=== PATIENT | female | born 1945 | race Caucasian/White ===

== ENCOUNTER → 2016-08-02 | Outpatient (CLI) | payer MEDICARE, OTHER ==
--- NOTE | 2016-08-02 12:13 | RADIOLOGY REPORT (SQ) ---
EXAM DESCRIPTION: CERV SP 3 VIEW OR LESS COMPLETED DATE/TIME: 08/02/2016 11:59 am REASON FOR STUDY: CERVICAL RADICULOPATHY COMPARISON: 02/02/2016,, 01/31/2016, 11/01/2015 CERVICAL SPINE PLAIN FILMS MRI CERVICAL SPINE 11/01/2015 NUMBER OF VIEWS: Three views. TECHNIQUE: AP, lateral and odontoid radiographic images acquired of the cervical spine. LIMITATIONS: For visualization of C7-T1 on flexion extension images due to the patient's shoulders FINDINGS: MINERALIZATION: Osteopenic ALIGNMENT: Anatomic. VERTEBRAE: Vertebral bodies of normal height. DISCS: Post anterior fusion from C5-C7 with an anterior fixation plate and anchoring screws. Post do rsal fusion at C4-5 with posterior stabilization rods and screws into the facets. HARDWARE: As above SOFT TISSUES: Very heavily calcified carotid bifurcations bilaterally OTHER: No other significant finding. IMPRESSION: No instability on flexion extension, very limited view of C7, T1 not well seen. TECHNICAL DOCUMENTATION: JOB ID: [id number]- All Rights Reserved
== END ==
LOC: RAD 11:25
PROVIDERS: ATTEND Specialist
DX: M54.12 Radiculopathy, cervical region (principal)
CPT/HCPCS: 72040

== ENCOUNTER 2017-05-31 22:08 | Inpatient (IN) | payer MEDICARE, OTHER ==
[2017-05-31] MEDS ORDERED: RINGERS SOLUTION,LACTATED 1,000 ML IV ONE ×2 (22:29→23:12)
[2017-05-31 22:43] LABS: ABSOLUTE BASOPHILS # (AUTO) 0.1 10^3/uL (0.0-0.2); ABSOLUTE EOSINOPHILS # (AUTO) 0.4 10^3/uL (0.0-0.6); ABSOLUTE LYMPHOCYTES (AUTO) 1.7 10^3/uL (0.5-4.7); ABSOLUTE MONOCYTES (AUTO) 0.7 10^3/uL (0.1-1.4); ABSOLUTE NEUT (AUTO) 10.5 10^3/uL (1.7-8.2); BASOPHILS % (AUTO) 0.9 % (0-2); EOSINOPHILS % (AUTO) 3.3 % (0-6); HEMATOCRIT 32.4 % (36.0-47.0); HEMOGLOBIN 10.2 g/dL (12.0-15.5); LYMPHOCYTES % (AUTO) 12.8 % (13-45); MEAN CORPUSCULAR HEMOGLOBIN 26.3 pg (27.0-33.4); MEAN CORPUSCULAR HGB CONC 31.4 g/dL (32.0-36.0); MEAN CORPUSCULAR VOLUME 84 fl (80-97); MONOCYTES % (AUTO) 5.1 % (3-13); PLATELET COUNT 294 10^3/uL (150-450); RED BLOOD COUNT 3.87 10^6/uL (3.72-5.28); SEGMENTED NEUTROPHILS % (AUTO) 77.9 % (42-78); TOTAL CELLS COUNTED % (AUTO) 100 %; WHITE BLOOD COUNT 13.5 10^3/uL (4.0-10.5)
[2017-05-31 22:49] LABS: VENOUS BLOOD BASE EXCESS 9.2 mmol/L; VENOUS BLOOD HCO3 36.2 mmol/L (20-32); VENOUS BLOOD PCO2 63.6 mmHg (35-63); VENOUS BLOOD PH 7.37 (7.30-7.42)
[2017-05-31 22:58] LABS: ALANINE AMINOTRANSFERASE 32 U/L (9-52); ALBUMIN 3.2 g/dL (3.5-5.0); ALKALINE PHOSPHATASE 84 U/L (38-126); ANION GAP 5 (5-19); ASPARTATE AMINO TRANSFERASE 35 U/L (14-36); BILIRUBIN,DIRECT 0.2 mg/dL (0.0-0.4); BILIRUBIN,TOTAL 0.3 mg/dL (0.2-1.3); BLOOD UREA NITROGEN 5 mg/dL (7-20); CALCIUM 8.3 mg/dL (8.4-10.2); CARBON DIOXIDE 38 mmol/L (22-30); CHLORIDE 95 mmol/L (98-107); GLUCOSE 167 mg/dL (75-110); POTASSIUM 4.1 mmol/L (3.6-5.0); SODIUM 137.7 mmol/L (137-145); TOTAL PROTEIN 5.7 g/dL (6.3-8.2)
[2017-05-31] MEDS ORDERED: CEFEPIME 2 GM/D5W RTU 2 GM/50 ML RTUPB IV ONE (23:07)
[2017-05-31] MEDS ORDERED: VANCOMYCIN HCL INJ 1000 MG VIAL IV ONE (23:09)
[2017-05-31] MEDS ORDERED: HYDROCORTISONE SOD SUCCINATE INJ/PF 100 MG/2 ML SDV IV ONE (23:10)
--- NOTE | 2017-05-31 23:12 | ER Document Report ---
ED General - General Chief Complaint: Fever Stated Complaint: FEVER Time Seen by Provider: 05/31/17 22:28 Cannot obtain history due to: Unstable vital signs, Altered mental status Notes: Patient is a 71 year old female with a past medical history of COPD, hypertension, hyperlipidemia, chronic steroid use, who presents with fever, cough, weakness and confusion. The patient is quite lethargic at time of evaluation and has difficulty providing meaningful history. Her daughter at the bedside states that the patient called her earlier today, sounded quite confused so she went to check on her. She states that when she evaluated her that she seemed quite lethargic and had difficulty tolerating her what was going on. When this persisted the daughter did call EMS to transfer the patient to the emergency department. TRAVEL OUTSIDE OF THE [place] IN LAST 30 DAYS: No - Related Data Allergies/Adverse Reactions: No Known Allergies Allergy (Verified 07/18/15 17:08) Past Medical History - General Information source: Patient, Relative - Social History Smoking Status: Current Every Day Smoker Frequency of alcohol use: None Drug Abuse: None Lives with: Alone Family History: Reviewed & Not Pertinent Patient has suicidal ideation: No Patient has homicidal ideation: No - Past Medical History Cardiac Medical History: Reports: Hx Hypercholesterolemia Denies: Hx Coronary Artery Disease, Hx Heart Attack, Hx Hypertension Pulmonary Medical History: Reports: Hx Bronchitis, Hx COPD, Hx Pneumonia - 10 yrs ago last time Denies: Hx Asthma Neurological Medical History: Denies: Hx Cerebrovascular Accident, Hx Seizures Endocrine Medical History: Reports: Hx Diabetes Mellitus Type 2 Renal/ Medical History: Denies: Hx Peritoneal Dialysis GI Medical History: Reports: Hx Gastroesophageal Reflux Disease Musculoskeltal Medical History: Reports Hx Arthritis - Rheumatoid Psychiatric Medical History: Reports: Hx Depression Past Surgical History: Reports: Hx Hysterectomy - Immunizations Hx Diphtheria, Pertussis, Tetanus Vaccination: No Review of Systems - Review of Systems Notes: Constitutional: Positive for fever. HENT: Negative for sore throat. Eyes: Negative for visual changes. Cardiovascular: Negative for chest pain. Respiratory: Positive for shortness of breath. Gastrointestinal: Negative for abdominal pain, vomiting or diarrhea. Genitourinary: Negative for dysuria. Musculoskeletal: Negative for back pain. Skin: Negative for rash. Neurological: Negative for headaches, weakness or numbness. 10 point ROS negative except as marked above and in HPI. Physical Exam - Vital signs Vitals: Resp BP Pulse Ox 17 116/57 L 91 L 05/31/17 22:42 05/31/17 22:42 05/31/17 22:42 Interpretation: Tachycardic, Hypoxic, Tachypneic Notes: PHYSICAL EXAMINATION: GENERAL: Appears ill, diaphoretic, unwell HEAD: Atraumatic, normocephalic. EYES: Pupils equal round and reactive to light, extraocular movements intact, sclera anicteric, conjunctiva are normal. ENT: nares patent, oropharynx clear without exudates. Dry mucous membranes. NECK: Normal range of motion, supple without lymphadenopathy LUNGS: Diminished breath sounds at the bases bilaterally. Moderate tachypnea current respiratory rate 28 breaths per minute. No wheezing or rales HEART: Regular tachycardia without murmurs ABDOMEN: Soft, nontender, normoactive bowel sounds. No guarding, no rebound. No masses appreciated. EXTREMITIES: Normal range of motion, no pitting or edema. No cyanosis. NEUROLOGICAL: No focal neurological deficits. Moves all extremities spontaneously and on command. PSYCH: Lethargic, falls asleep quite easily SKIN: Warm, diaphoretic, normal turgor, no rashes or lesions noted. Course - Re-evaluation Re-evalutation: 05/31/17 23:10 Patient presents critically ill, very ill in appearance, lethargic although does wake to speak to me but rapidly falls asleep during the middle of conversation. She was febrile to 101.8F, initially hypotensive at 94 and 64 with initial heart rate of 130 and initial oxygen saturation for EMS of 71% on room air. She does not normally require chronic oxygen. Patient's venous blood gas does show hypercapnia although no significant respiratory acidosis and patient does have a picture to suggest chronic CO2 retention. However given her work of breathing, her lethargy and need for 4-5 L of nasal cannula to maintain oxygen saturations of 93% she will be placed on BiPAP to prevent deterioration of her work of breathing and further CO2 retention. Broad- spectrum antibiotics will have been started in the form of cefepime and vancomycin. Her chest x-ray appears to have a left lower lobe pneumonia and this does clinically fit with her hypoxia and septic picture. We will begin aggressive IV fluids, and continue to monitor frequently 06/01/17 00:25 Patient has had improved work of breathing on BiPAP. She continues to be somewhat somnolent. Awaiting urinalysis. Will obtain a repeat venous blood gas to ensure the patient is not having worsening hypercapnia to account for her mentation and continue to monitor closely. Overall patient does appear clinically much improved from my initial assessment. 06/01/17 01:09 Overall clinically improved. Awaiting repeat blood gas. I have discussed this case with Dr. Mikey Mark and he has accepted the patient for hospitalization. - Vital Signs Vital signs: Temp Pulse Resp BP Pulse Ox 97.4 F 95 20 102/69 99 06/01/17 02:54 06/01/17 02:54 06/01/17 02:54 06/01/17 02:54 06/01/17 02:54 - Laboratory Result Diagrams: 05/31/17 22:28 05/31/17 22:28 Laboratory results interpreted by me: 05/31/17 05/31/17 05/31/17 22:28 22:28 22:28 WBC 13.5 H Hgb 10.2 L Hct 32.4 L MCH 26.3 L MCHC 31.4 L RDW 17.0 H Lymphocytes % 12.8 L Absolute Neutrophils 10.5 H VBG pCO2 63.6 H VBG HCO3 36.2 H Chloride 95 L Carbon Dioxide 38 H BUN 5 L Glucose 167 H Calcium 8.3 L Total Protein 5.7 L Albumin 3.2 L 06/01/17 00:55 WBC Hgb Hct MCH MCHC RDW Lymphocytes % Absolute Neutrophils VBG pCO2 VBG HCO3 34.1 H Chloride Carbon Dioxide BUN Glucose Calcium Total Protein Albumin - Diagnostic Test Radiology reviewed: Image reviewed, Reports reviewed Radiology results interpreted by me: 06/01/17 01:05 Chest x-ray: Bibasilar infiltrates more prominent on the right - EKG Interpretation by Me Additional EKG results interpreted by me: 06/01/17 03:39 Sinus tachycardia. Rate 122. No ST elevations or depressions. QTC is 433. Critical Care Note - Critical Care Note Total time excluding time spent on procedures (mins): 36 Comments: Critical care time spent obtaining history from patient or surrogate, discussions with consultants, development of treatment plan with patient or surrogate, evaluation of patient's response to treatment, examination of patient , ordering and performing treatments and interventions, ordering and review of laboratory studies, re-evaluation of patient's condition, ordering and review of radiographic studies and review of old charts Discharge - Discharge Clinical Impression: Respiratory distress Sepsis Qualifiers: Sepsis type: sepsis due to unspecified organism Qualified Code(s): A41.9 - Sepsis, unspecified organism Pneumonia Qualifiers: Pneumonia type: due to unspecified organism Laterality: unspecified laterality Lung location: unspecified part of lung Qualified Code(s): J18.9 - Pneumonia, unspecified organism Condition: Fair Disposition: ADMITTED INPATIENT Admitting Provider: Hospitalist Unit Admitted: [facility]
--- NOTE | 2017-05-31 23:23 | RADIOLOGY REPORT (SQ) ---
EXAM DESCRIPTION: CHEST SINGLE VIEW CLINICAL HISTORY: 71 years Female, fever COMPARISON: 07/24/15, report only. NUMBER OF VIEWS/TECHNIQUE: 1/AP LIMITATIONS: None. FINDINGS: Moderate interstitial markings, normal cardiac silhouette, atherosclerosis, lower cervical hardware fusion. IMPRESSION: Moderate interstitial markings. Differential diagnosis includes pulmonary edema, atypical pneumonitis, and/or chronic interstitial lung disease.
[2017-06-01 01:14] LABS: VENOUS BLOOD HCO3 34.1 mmol/L (20-32); VENOUS BLOOD PCO2 62.5 mmHg (35-63); VENOUS BLOOD PH 7.36 (7.30-7.42)
[2017-06-01] MEDS ORDERED: IPRATROPIUM/ALBUTEROL 0.5-2.5 MG/3 ML AMPUL NEB PRN (01:22)
[2017-06-01] MEDS ORDERED: ACETAMINOPHEN 325 MG TABLET PO PRN (01:22)
[2017-06-01] MEDS ORDERED: CHLORPHENIRAMINE MALEATE 4 MG TABLET PO ONE (01:25)
[2017-06-01] MEDS ORDERED: HYDRALAZINE HCL INJ/PF 20 MG/1 ML SDV IV PRN (01:25)
[2017-06-01] MEDS ORDERED: VANCOMYCIN HCL 0 MG in DEXTROSE 5%-WATER 250 ML IV NR (01:30)
[2017-06-01] MEDS ORDERED: CHLORPHENIRAMINE MALEATE 4 MG TABLET ONE (04:59)
[2017-06-01] MEDS: HEPARIN SOD (PORCINE) 5,000 UNIT/ML 1 ML SYRINGE SUBCUT SCH ×3 (05:12→22:32)
[2017-06-01 05:25] LABS: APPEARANCE,URINE CLEAR; BILIRUBIN,URINE NEGATIVE (NEGATIVE); COLOR,URINE STRAW; GLUCOSE, URINE NEGATIVE (NEGATIVE); KETONES,URINE NEGATIVE (NEGATIVE); LEUKOCYTE ESTERASE,URINE NEGATIVE (NEGATIVE); NITRITE,URINE NEGATIVE (NEGATIVE); PROTEIN,URINE NEGATIVE (NEGATIVE); URINE SPECIFIC GRAVITY 1.002; UROBILINOGEN,URINE NEGATIVE mg/dL (<2.0)
[2017-06-01] MEDS ORDERED: MINERAL OIL ENEMA 133 ML PR PRN (05:36)
[2017-06-01] MEDS ORDERED: LACTULOSE SYRUP 20 GM/30 ML UDCUP PO ONE (05:36)
--- NOTE | 2017-06-01 05:42 | PDOC H&P ---
History of Present Illness Admission Date/PCP: 06/01/17 01:15 JULIA SORIANO MD Patient complains of: Fever and altered mental status. History of Present Illness: MARIANA MCCLURE is a 71 year old female with a past medical history of prednisone dependent COPD with tobacco dependence, obstructive sleep apnea with CPAP noncompliance, chronic pain, fibromyalgia, depression and diabetes. She presents with complaints of fever and is found to have lethargy, confusion hypotension, hypercapnia and nonproductive cough. In the emergency room she receives empiric antibiotics, albuterol, Atrovent and referred to the hospitalist for admission. Patient denies new medications, chest pain but admits constipation and abdominal pain. Past Medical History Cardiac Medical History: Reports: Hyperlipidema Denies: Coronary Artery Disease, Myocardial Infarction, Hypertension Pulmonary Medical History: Reports: Bronchitis, Chronic Obstructive Pulmonary Disease (COPD), Pneumonia - 10 yrs ago last time Denies: Asthma Neurological Medical History: Denies: Seizures Endocrine Medical History: Reports: Diabetes Mellitus Type 2 GI Medical History: Reports: Gastroesophageal Reflux Disease Musculoskeltal Medical History: Reports: Arthritis - Rheumatoid Psychiatric Medical History: Reports: Depression Hematology: Reports: Anemia - when in her 20's Past Surgical History Past Surgical History: Reports: Hysterectomy Social History Information Source: Patient, [facility] Records Lives with: Alone Smoking Status: Current Every Day Smoker Cigarettes Packs Per Day: 1 Number of Years Smokin Frequency of Alcohol Use: Social Hx Recreational Drug Use: Yes Drugs: None Hx Prescription Drug Abuse: No - Advance Directive Resuscitation Status: Full Code Family History Family History: COPD Parental Family History Reviewed: Yes Children Family History Reviewed: Yes Sibling(s) Family History Reviewed.: Yes Medication/Allergy Home Medications: Cholecalciferol (Vitamin D3) [Vitamin D3] 50,000 unit PO ASDIR PRN 07/18/15 Gabapentin 600 mg PO QID 07/18/15 Pravastatin Sodium 20 mg PO HSP 07/18/15 Cyclobenzaprine HCl 10 mg PO TID 06/01/17 Duloxetine HCl [Cymbalta 20 mg Capsule.dr] 60 mg PO DAILY 06/01/17 Oxycodone HCl [Oxycodone HCl 10 MG Tablet] 10 mg PO BID 06/01/17 Oxycodone HCl [Oxycontin] 15 mg PO Q12H 06/01/17 Pantoprazole Sodium 40 mg PO DAILY 06/01/17 Pravastatin Sodium [Pravachol] 40 mg PO QHS 06/01/17 Allergies/Adverse Reactions: No Known Allergies Allergy (Verified 07/18/15 17:08) Review of Systems ROS unobtainable: Due to mental status Physical Exam Vital Signs: Temp Pulse Resp BP Pulse Ox 97.5 F 98 16 100/47 L 95 06/01/17 03:45 06/01/17 03:45 06/01/17 03:45 06/01/17 03:45 06/01/17 04:09 Intake & Output 05/30/17 05/31/17 06/01/17 11:59 11:59 11:59 Weight 81.3 kg General appearance: PRESENT: cooperative, disheveled, mild distress, obese Head exam: PRESENT: atraumatic, normocephalic Eye exam: PRESENT: conjunctiva pink, EOMI, PERRLA. ABSENT: scleral icterus Ear exam: PRESENT: normal external ear exam Mouth exam: PRESENT: moist, tongue midline Neck exam: ABSENT: carotid bruit, JVD, lymphadenopathy, thyromegaly Respiratory exam: PRESENT: crackles, prolonged expiratory phas, symmetrical. ABSENT: rales, rhonchi, wheezes Cardiovascular exam: PRESENT: RRR. ABSENT: diastolic murmur, rubs, systolic murmur Pulses: PRESENT: normal dorsalis pedis pul GI/Abdominal exam: PRESENT: distended, firm, hypoactive bowel sounds, normal bowel sounds, soft, tenderness - Diffuse tenderness without guarding. ABSENT: guarding, mass, organolmegaly, rebound Rectal exam: PRESENT: deferred Extremities exam: PRESENT: full ROM. ABSENT: calf tenderness, clubbing, pedal edema Neurological exam: PRESENT: alert, altered, awake, oriented to person, oriented to place, CN II-XII grossly intact Psychiatric exam: PRESENT: unusual affect Skin exam: PRESENT: dry, intact, warm. ABSENT: cyanosis, rash Results Impressions: Chest X-Ray 05/31/17 22:28 IMPRESSION: Moderate interstitial markings. Differential diagnosis includes pulmonary edema, atypical pneumonitis, and/or chronic interstitial lung disease. Assessment & Plan - Diagnosis (1) Pneumonia Qualifiers: Pneumonia type: due to unspecified organism Laterality: unspecified laterality Lung location: unspecified part of lung Qualified Code(s): J18.9 - Pneumonia, unspecified organism Is this a current diagnosis for this admission?: Yes Plan: Complicated by chronic pain and COPD. Flutter valve and incentive spirometry empiric antibiotics, albuterol and Atrovent, follow-up CBC and blood culture (2) Sepsis Qualifiers: Sepsis type: sepsis due to unspecified organism Qualified Code(s): A41.9 - Sepsis, unspecified organism Is this a current diagnosis for this admission?: Yes Plan: Secondary to #1, IV fluid challenge, reevaluate for pressors as needed, follow- up blood culture (3) Chronic pain Is this a current diagnosis for this admission?: Yes Plan: Opiate weaning given for respiratory drive, falls and severe constipation. (4) Constipation Is this a current diagnosis for this admission?: Yes Plan: Fleet enema and lactulose (5) Chronic obstructive pulmonary disease Is this a current diagnosis for this admission?: Yes Plan: Albuterol, Atrovent, flutter valve, avoidance of tobacco, BiPAP ordered but refused. - Time Time Spent: 50 to 70 Minutes
[2017-06-01 05:56] LABS: ABSOLUTE BASOPHILS # (AUTO) 0.1 10^3/uL (0.0-0.2); ABSOLUTE LYMPHOCYTES (AUTO) 0.6 10^3/uL (0.5-4.7); ABSOLUTE MONOCYTES (AUTO) 0.2 10^3/uL (0.1-1.4); BASOPHILS % (AUTO) 0.9 % (0-2); EOSINOPHILS % (AUTO) 0.2 % (0-6); HEMATOCRIT 30.7 % (36.0-47.0); HEMOGLOBIN 9.9 g/dL (12.0-15.5); LYMPHOCYTES % (AUTO) 7.1 % (13-45); MEAN CORPUSCULAR HEMOGLOBIN 26.8 pg (27.0-33.4); MEAN CORPUSCULAR HGB CONC 32.2 g/dL (32.0-36.0); MEAN CORPUSCULAR VOLUME 83 fl (80-97); MONOCYTES % (AUTO) 2.1 % (3-13); PLATELET COUNT 236 10^3/uL (150-450); RED CELL DISTRIBUTION WIDTH 17.1 % (11.5-14.0); SEGMENTED NEUTROPHILS % (AUTO) 89.7 % (42-78); TOTAL CELLS COUNTED % (AUTO) 100 %; WHITE BLOOD COUNT 8.9 10^3/uL (4.0-10.5)
[2017-06-01 06:13] LABS: ANION GAP 9 (5-19); BLOOD UREA NITROGEN 5 mg/dL (7-20); CALCIUM 8.6 mg/dL (8.4-10.2); CARBON DIOXIDE 33 mmol/L (22-30); CHLORIDE 102 mmol/L (98-107); GLUCOSE 158 mg/dL (75-110); SODIUM 144.1 mmol/L (137-145)
[2017-06-01 06:34] LABS: POTASSIUM 4.1 mmol/L (3.6-5.0)
[2017-06-01] MEDS: IPRATROPIUM/ALBUTEROL 0.5-2.5 MG/3 ML AMPUL NEB SCH ×3 (08:21→23:49)
--- NOTE | 2017-06-01 08:44 | EKG REPORT ---
SEVERITY:- ABNORMAL ECG - SINUS TACHYCARDIA PROBABLE LEFT ATRIAL ABNORMALITY REPOL ABNRM SUGGESTS ISCHEMIA, DIFFUSE LEADS : Confirmed by: Bradley Brumfield MD 01-Jun-2017 08:43:45
[2017-06-01] MEDS ORDERED: CEFEPIME 2 GM/D5W RTU 2 GM/50 ML RTUPB IV SCH (10:00)
--- NOTE | 2017-06-01 10:13 | PDOC PROGRESS REPORT ---
Subjective Progress Note for:: 06/01/17 Subjective:: Patient states she is feeling a little better no fever no chills no chest pains She appears comfortable on the nasal cannula Reason For Visit: PNEUMONIA Physical Exam Vital Signs: Temp Pulse Resp BP Pulse Ox 98.0 F 88 18 136/63 H 94 06/01/17 07:34 06/01/17 08:24 06/01/17 08:24 06/01/17 07:34 06/01/17 08:24 Intake & Output 05/31/17 06/01/17 06/02/17 00:59 00:59 00:59 Intake Total 40 Output Total 500 Balance -460 Weight 81.3 kg General appearance: PRESENT: no acute distress, cooperative, obese Head exam: PRESENT: atraumatic, normocephalic Eye exam: PRESENT: conjunctiva pink, EOMI, PERRLA. ABSENT: scleral icterus Respiratory exam: PRESENT: decreased breath sounds. ABSENT: chest wall tenderness, rales, tachypnea, wheezes Cardiovascular exam: PRESENT: RRR. ABSENT: diastolic murmur, rubs, systolic murmur Pulses: PRESENT: normal dorsalis pedis pul GI/Abdominal exam: PRESENT: normal bowel sounds, soft. ABSENT: distended, guarding, mass, organolmegaly, rebound, tenderness Neurological exam: PRESENT: alert, awake, oriented to person, oriented to place , oriented to time, oriented to situation, CN II-XII grossly intact. ABSENT: motor sensory deficit Psychiatric exam: PRESENT: appropriate affect, normal mood Results Laboratory Results: 06/01/17 05:19 06/01/17 05:19 06/01/17 06/01/17 06/01/17 04:40 05:19 05:19 WBC 8.9 RBC 3.70 L Hgb 9.9 L Hct 30.7 L MCV 83 MCH 26.8 L MCHC 32.2 RDW 17.1 H Plt Count 236 Seg Neutrophils % 89.7 H Lymphocytes % 7.1 L Monocytes % 2.1 L Eosinophils % 0.2 Basophils % 0.9 Absolute Neutrophils 8.0 Absolute Lymphocytes 0.6 Absolute Monocytes 0.2 Absolute Eosinophils 0.0 Absolute Basophils 0.1 Sodium 144.1 Potassium 4.1 Chloride 102 Carbon Dioxide 33 H Anion Gap 9 BUN 5 L Creatinine 0.75 Est GFR ( Amer) > 60 Est GFR (Non-Af Amer) > 60 Glucose 158 H Calcium 8.6 Urine Color STRAW Urine Appearance CLEAR Urine pH 7.0 Ur Specific [facility] [place] 1.002 Urine Protein NEGATIVE Urine Glucose (UA) NEGATIVE Urine Ketones NEGATIVE Urine Blood NEGATIVE Urine Nitrite NEGATIVE Ur Leukocyte Esterase NEGATIVE Urine WBC (Auto) 1 Impressions: Chest X-Ray 05/31/17 22:28 IMPRESSION: Moderate interstitial markings. Differential diagnosis includes pulmonary edema, atypical pneumonitis, and/or chronic interstitial lung disease. Assessment & Plan - Diagnosis (1) Pneumonia Qualifiers: Pneumonia type: due to unspecified organism Laterality: unspecified laterality Lung location: unspecified part of lung Qualified Code(s): J18.9 - Pneumonia, unspecified organism Is this a current diagnosis for this admission?: Yes Plan: Treat with broad-spectrum antibiotics until cultures sputum are available As patient had discontinued vancomycin and initiated linezolid; Patient had acute renal failure with vancomycin in 2016 (2) Chronic obstructive pulmonary disease Is this a current diagnosis for this admission?: Yes (3) Chronic pain Is this a current diagnosis for this admission?: Yes (4) Sepsis Qualifiers: Sepsis type: sepsis due to unspecified organism Qualified Code(s): A41.9 - Sepsis, unspecified organism Is this a current diagnosis for this admission?: Yes (5) Tobacco abuse disorder Is this a current diagnosis for this admission?: Yes Plan: Discussed tobacco cessation initiate nicotine patch (6) Chronic anemia Is this a current diagnosis for this admission?: Yes Plan: Initiate workup in a.m. - Time Time Spent with patient: 25-34 minutes - Inpatient Certification Based on my medical assessment, after consideration of the patient's comorbidities, presenting symptoms, or acuity I expect that the services needed warrant INPATIENT care.: Yes I certify that my determination is in accordance with my understanding of Medicare's requirements for reasonable and necessary INPATIENT services [42 CFR 412.3e].: Yes Medical Necessity: Need Close Monitoring Due to Risk of Patient Decompensation, Need for Nebulizer Therapy and Monitoring of Response, Need for IV Antibiotics
[2017-06-01] MEDS ORDERED: (PENDING PHARMACY ID) (Oxycodone Hcl [Oxycontin] 15 MG) PO SCH (10:15)
[2017-06-01] MEDS ORDERED: GABAPENTIN 100 MG CAPSULE PO SCH (11:00)
[2017-06-01] MEDS ORDERED: LINEZOLID 600 MG RTU 300 ML IV ONE (11:00)
[2017-06-01] MEDS ORDERED: NICOTINE 14 MG/24 HR PATCH.TD24 TD ONE (11:30)
[2017-06-01] MEDS ORDERED: OXYCODONE HCL SR 10 MG TABLET PO ONE (11:30)
[2017-06-01] MEDS: GUAIFENESIN 600 MG TABLET.SA PO SCH ×2 (11:58→22:33)
[2017-06-01] MEDS: FLUTICASONE NASAL SPRAY 50 MCG/SPRY 120 SPRAY/16 GM NASL SCH ×2 (12:00→22:32)
[2017-06-01] MEDS ORDERED: CYCLOBENZAPRINE HCL 10 MG TABLET PO SCH (14:00)
[2017-06-01] MEDS: OXYCODONE HCL IR 5 MG TABLET PO SCH (17:18)
[2017-06-01] MEDS ORDERED: (PENDING PHARMACY ID) (Pravastatin Sodium [Pravachol] 40 MG) PO SCH (22:00)
[2017-06-01] MEDS: LINEZOLID 300 ML IV SCH (22:32)
[2017-06-01] MEDS: OXYCODONE HCL SR 10 MG TABLET PO SCH (22:33)
[2017-06-01] MEDS: ATORVASTATIN CALCIUM 10 MG TABLET PO SCH (22:33)
[2017-06-02 05:08] LABS: ABSOLUTE BASOPHILS # (AUTO) 0.1 10^3/uL (0.0-0.2); ABSOLUTE EOSINOPHILS # (AUTO) 0.3 10^3/uL (0.0-0.6); ABSOLUTE LYMPHOCYTES (AUTO) 1.1 10^3/uL (0.5-4.7); ABSOLUTE MONOCYTES (AUTO) 0.6 10^3/uL (0.1-1.4); ABSOLUTE RETICS # 0.116 10^6/uL (0.028-0.122); BASOPHILS % (AUTO) 0.9 % (0-2); EOSINOPHILS % (AUTO) 2.5 % (0-6); HEMATOCRIT 31.8 % (36.0-47.0); HEMOGLOBIN 9.9 g/dL (12.0-15.5); LYMPHOCYTES % (AUTO) 10.1 % (13-45); MEAN CORPUSCULAR HGB CONC 31.1 g/dL (32.0-36.0); MEAN CORPUSCULAR VOLUME 84 fl (80-97); MONOCYTES % (AUTO) 5.3 % (3-13); PLATELET COUNT 253 10^3/uL (150-450); RED BLOOD COUNT 3.81 10^6/uL (3.72-5.28); RED CELL DISTRIBUTION WIDTH 16.6 % (11.5-14.0); RETICULOCYTE COUNT (AUTO) 3.05 % (0.66-2.85); SEGMENTED NEUTROPHILS % (AUTO) 81.2 % (42-78); TOTAL CELLS COUNTED % (AUTO) 100 %; WHITE BLOOD COUNT 11.1 10^3/uL (4.0-10.5)
[2017-06-02 05:38] LABS: ANION GAP 8 (5-19); BLOOD UREA NITROGEN 3 mg/dL (7-20); CARBON DIOXIDE 35 mmol/L (22-30); CHLORIDE 100 mmol/L (98-107); GLUCOSE 117 mg/dL (75-110); IRON(TIBC) 22.6 ug/dL (37-170); POTASSIUM 3.5 mmol/L (3.6-5.0); SODIUM 143.2 mmol/L (137-145)
[2017-06-02 06:13] LABS: FERRITIN 9.51 ng/mL (11.1-264.0)
[2017-06-02] MEDS: HEPARIN SOD (PORCINE) 5,000 UNIT/ML 1 ML SYRINGE SUBCUT SCH ×3 (06:41→21:55)
[2017-06-02] MEDS: LANSOPRAZOLE 30 MG TAB.RAP.DR PO SCH (06:41)
[2017-06-02] MEDS: OXYCODONE HCL IR 5 MG TABLET PO SCH (06:41)
[2017-06-02 06:53] LABS: FOLATE > 20.00 ng/mL (>2.76)
[2017-06-02] MEDS: IPRATROPIUM/ALBUTEROL 0.5-2.5 MG/3 ML AMPUL NEB SCH ×3 (08:18→23:52)
[2017-06-02] MEDS: OXYCODONE HCL SR 10 MG TABLET PO SCH ×2 (10:33→21:55)
[2017-06-02] MEDS: GUAIFENESIN 600 MG TABLET.SA PO SCH ×2 (10:33→21:55)
[2017-06-02] MEDS: LINEZOLID 300 ML IV SCH ×2 (10:34→21:55)
[2017-06-02] MEDS: NICOTINE 14 MG/24 HR PATCH.TD24 TD SCH (10:34)
[2017-06-02] MEDS: FLUTICASONE NASAL SPRAY 50 MCG/SPRY 120 SPRAY/16 GM NASL SCH ×2 (10:34→21:55)
--- NOTE | 2017-06-02 11:30 | PDOC PROGRESS REPORT ---
Subjective Progress Note for:: 06/02/17 Subjective:: Patient is complaining of diffuse pains and headaches no shortness of breath no fever no chills no pleuritic chest pains Reason For Visit: PNEUMONIA Physical Exam Vital Signs: Temp Pulse Resp BP Pulse Ox 98.1 F 97 18 145/69 H 97 06/02/17 08:13 06/02/17 08:24 06/02/17 08:24 06/02/17 08:13 06/02/17 08:24 Intake & Output 06/01/17 06/02/17 06/03/17 00:59 00:59 00:59 Intake Total 1397 855 Output Total 500 1900 Balance 897 -1045 Weight 81.3 kg 79.6 kg General appearance: PRESENT: no acute distress Head exam: PRESENT: atraumatic, normocephalic Eye exam: PRESENT: conjunctiva pink, EOMI, PERRLA. ABSENT: scleral icterus Neck exam: ABSENT: carotid bruit, JVD, lymphadenopathy, thyromegaly Respiratory exam: PRESENT: clear to auscultation mia, decreased breath sounds. ABSENT: rales, rhonchi, wheezes Cardiovascular exam: PRESENT: RRR. ABSENT: diastolic murmur, rubs, systolic murmur Pulses: PRESENT: normal dorsalis pedis pul GI/Abdominal exam: PRESENT: ascites Extremities exam: PRESENT: full ROM, +1 edema - Left lower extremity. ABSENT: clubbing, joint swelling Neurological exam: PRESENT: alert, awake, oriented to person, oriented to place , oriented to time, oriented to situation, CN II-XII grossly intact. ABSENT: motor sensory deficit Results Laboratory Results: 06/02/17 04:48 06/02/17 04:48 06/02/17 06/02/17 04:48 04:48 WBC 11.1 H RBC 3.81 Hgb 9.9 L Hct 31.8 L MCV 84 MCH 26.0 L MCHC 31.1 L RDW 16.6 H Plt Count 253 Seg Neutrophils % 81.2 H Lymphocytes % 10.1 L Monocytes % 5.3 Eosinophils % 2.5 Basophils % 0.9 Absolute Neutrophils 9.0 H Absolute Lymphocytes 1.1 Absolute Monocytes 0.6 Absolute Eosinophils 0.3 Absolute Basophils 0.1 Retic Count (auto) 3.05 H Absolute Retic 0.116 Sodium 143.2 Potassium 3.5 L Chloride 100 Carbon Dioxide 35 H Anion Gap 8 BUN 3 L Creatinine 0.64 Est GFR ( Amer) > 60 Est GFR (Non-Af Amer) > 60 Glucose 117 H Calcium 9.0 Iron 22.6 L TIBC 420 % Saturation 5 Ferritin 9.51 L Vitamin B12 401.0 Folate > 20.00 Impressions: Chest X-Ray 05/31/17 22:28 IMPRESSION: Moderate interstitial markings. Differential diagnosis includes pulmonary edema, atypical pneumonitis, and/or chronic interstitial lung disease. Assessment & Plan - Diagnosis (1) Pneumonia Qualifiers: Pneumonia type: due to unspecified organism Laterality: unspecified laterality Lung location: unspecified part of lung Qualified Code(s): J18.9 - Pneumonia, unspecified organism Is this a current diagnosis for this admission?: Yes Plan: Complicated pneumonia with sepsis on admission Continue broad-spectrum coverage (2) Chronic obstructive pulmonary disease Is this a current diagnosis for this admission?: Yes (3) Chronic pain Is this a current diagnosis for this admission?: Yes Plan: Continue pain meds Changed oxycodone to every 4 hours . as needed (4) Sepsis Qualifiers: Sepsis type: sepsis due to unspecified organism Qualified Code(s): A41.9 - Sepsis, unspecified organism Is this a current diagnosis for this admission?: Yes (5) Tobacco abuse disorder Is this a current diagnosis for this admission?: Yes (6) Chronic anemia Is this a current diagnosis for this admission?: Yes Plan: Likely anemia of chronic disease and iron deficiency anemia We will replace iron - Time Time Spent with patient: Continue present management Time Spent with patient: 25-34 minutes
[2017-06-02] MEDS: FERROUS SULFATE 325 MG TABLET PO SCH (12:06)
[2017-06-02] MEDS ORDERED: POTASSIUM CHLORIDE 10 MEQ CAPSULE.ER PO ONE (12:30)
[2017-06-02] MEDS: OXYCODONE HCL IR 5 MG TABLET PO PRN (18:01)
[2017-06-02] MEDS: ATORVASTATIN CALCIUM 10 MG TABLET PO SCH (21:55)
[2017-06-03] MEDS: OXYCODONE HCL IR 5 MG TABLET PO PRN ×4 (00:06→19:33)
[2017-06-03 05:51] LABS: ABSOLUTE BASOPHILS # (AUTO) 0.1 10^3/uL (0.0-0.2); ABSOLUTE EOSINOPHILS # (AUTO) 0.4 10^3/uL (0.0-0.6); ABSOLUTE LYMPHOCYTES (AUTO) 1.3 10^3/uL (0.5-4.7); ABSOLUTE MONOCYTES (AUTO) 0.4 10^3/uL (0.1-1.4); ABSOLUTE NEUT (AUTO) 5.4 10^3/uL (1.7-8.2); EOSINOPHILS % (AUTO) 4.8 % (0-6); HEMATOCRIT 32.2 % (36.0-47.0); HEMOGLOBIN 10.2 g/dL (12.0-15.5); LYMPHOCYTES % (AUTO) 17.5 % (13-45); MEAN CORPUSCULAR HEMOGLOBIN 26.3 pg (27.0-33.4); MEAN CORPUSCULAR HGB CONC 31.7 g/dL (32.0-36.0); MEAN CORPUSCULAR VOLUME 83 fl (80-97); MONOCYTES % (AUTO) 5.6 % (3-13); PLATELET COUNT 242 10^3/uL (150-450); RED BLOOD COUNT 3.88 10^6/uL (3.72-5.28); RED CELL DISTRIBUTION WIDTH 16.7 % (11.5-14.0); SEGMENTED NEUTROPHILS % (AUTO) 71.1 % (42-78); TOTAL CELLS COUNTED % (AUTO) 100 %; WHITE BLOOD COUNT 7.6 10^3/uL (4.0-10.5)
[2017-06-03] MEDS: LANSOPRAZOLE 30 MG TAB.RAP.DR PO SCH (06:02)
[2017-06-03] MEDS: HEPARIN SOD (PORCINE) 5,000 UNIT/ML 1 ML SYRINGE SUBCUT SCH ×3 (06:02→21:26)
[2017-06-03 06:43] LABS: ANION GAP 9 (5-19); BLOOD UREA NITROGEN 3 mg/dL (7-20); CALCIUM 8.9 mg/dL (8.4-10.2); CARBON DIOXIDE 33 mmol/L (22-30); CHLORIDE 101 mmol/L (98-107); GLUCOSE 100 mg/dL (75-110); POTASSIUM 3.5 mmol/L (3.6-5.0)
[2017-06-03] MEDS: IPRATROPIUM/ALBUTEROL 0.5-2.5 MG/3 ML AMPUL NEB SCH ×2 (08:28→16:10)
[2017-06-03] MEDS: OXYCODONE HCL SR 10 MG TABLET PO SCH ×2 (09:54→21:32)
[2017-06-03] MEDS: FLUTICASONE NASAL SPRAY 50 MCG/SPRY 120 SPRAY/16 GM NASL SCH ×2 (09:54→21:32)
[2017-06-03] MEDS: NICOTINE 14 MG/24 HR PATCH.TD24 TD SCH (09:55)
[2017-06-03] MEDS: LINEZOLID 300 ML IV SCH ×2 (09:55→21:29)
[2017-06-03] MEDS: GUAIFENESIN 600 MG TABLET.SA PO SCH ×2 (09:55→21:31)
[2017-06-03] MEDS: FERROUS SULFATE 325 MG TABLET PO SCH (12:41)
--- NOTE | 2017-06-03 12:43 | PDOC PROGRESS REPORT ---
Subjective Progress Note for:: 06/03/17 Subjective:: Patient is complaining of severe pain left lower extremity intermittent Her breathing is better She still remains hypoxemic at rest with an O2 sat of 89% No chest pain no productive cough no fever no chills Reason For Visit: PNEUMONIA Physical Exam Vital Signs: Temp Pulse Resp BP Pulse Ox 98.1 F 96 16 123/64 98 06/03/17 07:49 06/03/17 08:28 06/03/17 08:28 06/03/17 07:49 06/03/17 08:28 Intake & Output 06/02/17 06/03/17 06/04/17 00:59 00:59 00:59 Intake Total 1397 1892 500 Output Total 500 3100 1900 Balance 937 -7077 -1400 Weight 81.3 kg 79.6 kg 77.6 kg General appearance: PRESENT: no acute distress Head exam: PRESENT: atraumatic, normocephalic Eye exam: PRESENT: conjunctiva pink, EOMI, PERRLA. ABSENT: scleral icterus Neck exam: ABSENT: carotid bruit, JVD, lymphadenopathy, thyromegaly Respiratory exam: PRESENT: clear to auscultation mia, decreased breath sounds. ABSENT: rales, rhonchi, wheezes Cardiovascular exam: PRESENT: RRR. ABSENT: diastolic murmur, rubs, systolic murmur Pulses: PRESENT: normal dorsalis pedis pul GI/Abdominal exam: PRESENT: ascites Extremities exam: PRESENT: full ROM, +1 edema - Left lower extremity. ABSENT: clubbing, joint swelling Neurological exam: PRESENT: alert, awake, oriented to person, oriented to place , oriented to time, oriented to situation, CN II-XII grossly intact. ABSENT: motor sensory deficit Results Laboratory Results: 06/03/17 05:06 06/03/17 05:06 06/03/17 06/03/17 05:06 05:06 WBC 7.6 RBC 3.88 Hgb 10.2 L Hct 32.2 L MCV 83 MCH 26.3 L MCHC 31.7 L RDW 16.7 H Plt Count 242 Seg Neutrophils % 71.1 Lymphocytes % 17.5 Monocytes % 5.6 Eosinophils % 4.8 Basophils % 1.0 Absolute Neutrophils 5.4 Absolute Lymphocytes 1.3 Absolute Monocytes 0.4 Absolute Eosinophils 0.4 Absolute Basophils 0.1 Sodium 143.0 Potassium 3.5 L Chloride 101 Carbon Dioxide 33 H Anion Gap 9 BUN 3 L Creatinine 0.73 Est GFR ( Amer) > 60 Est GFR (Non-Af Amer) > 60 Glucose 100 Calcium 8.9 06/01/17 04:40 Clean Catch Midstream Urine Culture - Final NO GROWTH 2 DAYS Impressions: Chest X-Ray 05/31/17 22:28 IMPRESSION: Moderate interstitial markings. Differential diagnosis includes pulmonary edema, atypical pneumonitis, and/or chronic interstitial lung disease. Assessment & Plan - Diagnosis (1) Pneumonia Qualifiers: Pneumonia type: due to unspecified organism Laterality: unspecified laterality Lung location: unspecified part of lung Qualified Code(s): J18.9 - Pneumonia, unspecified organism Is this a current diagnosis for this admission?: Yes (2) Chronic obstructive pulmonary disease Is this a current diagnosis for this admission?: Yes (3) Chronic pain Is this a current diagnosis for this admission?: Yes (4) Sepsis Qualifiers: Sepsis type: sepsis due to unspecified organism Qualified Code(s): A41.9 - Sepsis, unspecified organism Is this a current diagnosis for this admission?: Yes (5) Tobacco abuse disorder Is this a current diagnosis for this admission?: Yes (6) Chronic anemia Is this a current diagnosis for this admission?: Yes (7) Peripheral neuropathy Is this a current diagnosis for this admission?: Yes - Time Time Spent with patient: We will continue the present management Overall patient's condition has improved but she still significantly hypoxemic We will continue broad-spectrum antibiotics IV for total of 5 days Decrease steroids Continue pain management Patient likely will be discharged on 06/05 with supplemental O2 if she qualifies Time Spent with patient: 25-34 minutes
[2017-06-03] MEDS ORDERED: DULOXETINE HCL 30 MG CAPSULE.DR PO ONE (13:00)
[2017-06-03] MEDS ORDERED: PREDNISONE 20 MG TABLET PO ONE (14:00)
[2017-06-03] MEDS: ATORVASTATIN CALCIUM 10 MG TABLET PO SCH (21:31)
[2017-06-03] MEDS: GABAPENTIN 300 MG CAPSULE PO SCH (21:31)
[2017-06-04] MEDS: IPRATROPIUM/ALBUTEROL 0.5-2.5 MG/3 ML AMPUL NEB SCH ×2 (00:26→08:51)
[2017-06-04 06:27] LABS: ABSOLUTE BASOPHILS # (AUTO) 0.1 10^3/uL (0.0-0.2); ABSOLUTE LYMPHOCYTES (AUTO) 1.5 10^3/uL (0.5-4.7); ABSOLUTE MONOCYTES (AUTO) 0.8 10^3/uL (0.1-1.4); ABSOLUTE NEUT (AUTO) 8.1 10^3/uL (1.7-8.2); BASOPHILS % (AUTO) 1.3 % (0-2); EOSINOPHILS % (AUTO) 0.4 % (0-6); HEMATOCRIT 34.6 % (36.0-47.0); HEMOGLOBIN 10.9 g/dL (12.0-15.5); LYMPHOCYTES % (AUTO) 14.2 % (13-45); MEAN CORPUSCULAR HEMOGLOBIN 26.3 pg (27.0-33.4); MEAN CORPUSCULAR HGB CONC 31.6 g/dL (32.0-36.0); MEAN CORPUSCULAR VOLUME 83 fl (80-97); MONOCYTES % (AUTO) 7.3 % (3-13); PLATELET COUNT 276 10^3/uL (150-450); RED BLOOD COUNT 4.15 10^6/uL (3.72-5.28); RED CELL DISTRIBUTION WIDTH 16.8 % (11.5-14.0); SEGMENTED NEUTROPHILS % (AUTO) 76.8 % (42-78); TOTAL CELLS COUNTED % (AUTO) 100 %; WHITE BLOOD COUNT 10.5 10^3/uL (4.0-10.5)
[2017-06-04 06:45] LABS: ANION GAP 6 (5-19); BLOOD UREA NITROGEN 3 mg/dL (7-20); CALCIUM 9.5 mg/dL (8.4-10.2); CARBON DIOXIDE 38 mmol/L (22-30); CHLORIDE 99 mmol/L (98-107); GLUCOSE 117 mg/dL (75-110); POTASSIUM 3.6 mmol/L (3.6-5.0); SODIUM 143.4 mmol/L (137-145)
[2017-06-04] MEDS: HEPARIN SOD (PORCINE) 5,000 UNIT/ML 1 ML SYRINGE SUBCUT SCH (07:04)
[2017-06-04] MEDS: LANSOPRAZOLE 30 MG TAB.RAP.DR PO SCH (07:04)
[2017-06-04 09:26] VITALS: BP 126/64
[2017-06-04] MEDS ORDERED: LEVOFLOXACIN 750 MG TABLET PO ONE (09:32)
[2017-06-04] MEDS: GUAIFENESIN 600 MG TABLET.SA PO SCH (09:35)
[2017-06-04] MEDS: OXYCODONE HCL SR 10 MG TABLET PO SCH (09:35)
[2017-06-04] MEDS: NICOTINE 14 MG/24 HR PATCH.TD24 TD SCH (09:36)
[2017-06-04] MEDS: FLUTICASONE NASAL SPRAY 50 MCG/SPRY 120 SPRAY/16 GM NASL SCH (09:36)
[2017-06-04] MEDS: LINEZOLID 300 ML IV SCH (09:36)
[2017-06-04] MEDS: GABAPENTIN 300 MG CAPSULE PO SCH (09:36)
[2017-06-04] MEDS ORDERED: PREDNISONE 20 MG TABLET PO SCH (10:00)
[2017-06-04] MEDS ORDERED: DULOXETINE HCL 30 MG CAPSULE.DR PO SCH (10:00)
--- NOTE | 2017-06-04 15:47 | PDOC DISCHARGE SUMMARY ---
General - Admit/Disc Date/PCP Admission Date/Primary Care Provider: 06/01/17 01:15 JULIA SORIANO MD Discharge Date: 06/04/17 - Discharge Diagnosis (1) Pneumonia Is this a current diagnosis for this admission?: Yes (2) Chronic obstructive pulmonary disease Is this a current diagnosis for this admission?: Yes (3) Chronic pain Is this a current diagnosis for this admission?: Yes (4) Sepsis Is this a current diagnosis for this admission?: Yes (5) Tobacco abuse disorder Is this a current diagnosis for this admission?: Yes (6) Chronic anemia Is this a current diagnosis for this admission?: Yes (7) Peripheral neuropathy Is this a current diagnosis for this admission?: Yes (8) Obstructive sleep apnea Is this a current diagnosis for this admission?: Yes - Additional Information Resuscitation Status: Full Code Prescriptions: Ferrous Sulfate [Feosol 325 mg Tablet] 325 mg PO NOON 30 Days #30 tablet Fluticasone Propionate [Flonase Nasal [place] 50 Mcg/[place] 16 gm] 2 spray NASL Q12 #1 spray.pump Guaifenesin [Mucinex Sr 600 mg Tablet.sa] 600 mg PO Q12 10 Days #20 tablet.sa Ipratropium/Albuterol Sulfate [Duoneb 3 ml Ampul] 3 ml NEB RTQ8 30 Days #30 vial.neb Levofloxacin [Levaquin 750 mg Tablet] 750 mg PO DAILY #10 tab Nicotine [Nicoderm 14 mg/24 Hr Transdermal Patch] 1 patch TD DAILY 30 Days #30 patch.td24 Prednisone [Deltasone 20 mg Tablet] 20 mg PO DAILY 14 Days #14 tablet Home Medications: Albuterol Sulfate [Proventil Hfa] 1 puff IH Q4HP PRN 06/01/17 Cyclobenzaprine HCl [Flexeril 10 mg Tablet] 10 mg PO TID 06/01/17 Duloxetine HCl [Cymbalta] 60 mg PO DAILY 06/01/17 Ergocalciferol (Vitamin D2) [Drisdol 50,000 unit (1.25MG) Capsule] 50,000 unit PO WE 06/01/17 Gabapentin [Neurontin 300 mg Capsule] 300 mg PO Q12 06/01/17 Oxycodone HCl [Oxycodone HCl 10 MG Tablet] 10 mg PO Q12 06/01/17 Oxycodone HCl [Oxycontin] 15 mg PO Q12 06/01/17 Pantoprazole Sodium [Protonix] 40 mg PO DAILY 06/01/17 Pravastatin Sodium [Pravachol] 40 mg PO DAILY 06/01/17 Ferrous Sulfate [Feosol 325 mg Tablet] 325 mg PO NOON 30 Days #30 tablet Fluticasone Propionate [Flonase Nasal [place] 50 Mcg/[place] 16 gm] 2 spray NASL Q12 #1 spray.pump 06/04/17 Guaifenesin [Mucinex Sr 600 mg Tablet.sa] 600 mg PO Q12 10 Days #20 tablet.sa Ipratropium/Albuterol Sulfate [Duoneb 3 ml Ampul] 3 ml NEB RTQ8 30 Days #30 vial.neb 06/04/17 Levofloxacin [Levaquin 750 mg Tablet] 750 mg PO DAILY #10 tab 06/04/17 Nicotine [Nicoderm 14 mg/24 Hr Transdermal Patch] 1 patch TD DAILY 30 Days #30 patch.td24 06/04/17 Prednisone [Deltasone 20 mg Tablet] 20 mg PO DAILY 14 Days #14 tablet 06/04/17 History of Present Illness Patient complains of: shortness breath fever cough History of Present Illness: MARIANA MCCLURE is a 71 year old female with a past medical history of prednisone dependent COPD with tobacco dependence, obstructive sleep apnea with CPAP noncompliance, chronic pain, fibromyalgia, depression and diabetes. She presents with complaints of fever and is found to have lethargy, confusion hypotension, hypercapnia and nonproductive cough. In the emergency room she receives empiric antibiotics, albuterol, Atrovent and referred to the hospitalist for admission. Hospital Course Hospital Course: 1 COPD acute exacerbation Patient was treated with nebs Steroids were added She initially required supplemental O2 She improved with medical management At discharge patient's O2 sat is 94% on room air 2 pneumonia Initial chest x-ray showed increased markings bilaterally Patient was treated initially with broad-spectrum antibiotic including cefepime and vancomycin Blood cultures were negative She had a nonproductive cough patient clinically improved She was discharged on 10 day course of Levaquin. 3 sepsis on admission secondary to pneumonia resolved Pneumonia was present at time of admission 4 tobacco dependency Patient was discharged with nicotine patch Tobacco cessation was discussed at length 5 chronic anemia Likely anemia of chronic disease and iron deficiency anemia The patient had normal vitamin B12 and normal folic acid level Serum iron was low Patient was discharged on iron supplements Physical Exam Vital Signs: Temp Pulse Resp BP Pulse Ox 98.1 F 108 H 16 126/64 H 94 06/04/17 12:20 06/04/17 12:20 06/04/17 12:20 06/04/17 08:21 06/04/17 12:20 Intake & Output 06/03/17 06/04/17 06/05/17 00:59 00:59 00:59 Intake Total 1892 1370 400 Output Total 3100 2700 0 Balance -1208 -1330 400 Weight 79.6 kg 77.6 kg 73.7 kg General appearance: PRESENT: no acute distress Head exam: PRESENT: atraumatic, normocephalic Eye exam: PRESENT: conjunctiva pink, EOMI, PERRLA. ABSENT: scleral icterus Neck exam: ABSENT: carotid bruit, JVD, lymphadenopathy, thyromegaly Respiratory exam: PRESENT: clear to auscultation mia, decreased breath sounds. ABSENT: rales, rhonchi, wheezes Cardiovascular exam: PRESENT: RRR. ABSENT: diastolic murmur, rubs, systolic murmur Pulses: PRESENT: normal dorsalis pedis pul GI/Abdominal exam: PRESENT: ascites Extremities exam: PRESENT: full ROM, +1 edema - Left lower extremity. ABSENT: clubbing, joint swelling Neurological exam: PRESENT: alert, awake, oriented to person, oriented to place , oriented to time, oriented to situation, CN II-XII grossly intact. ABSENT: motor sensory deficit Results Laboratory Results: 06/04/17 05:29 06/04/17 05:29 06/02/17 06/04/17 06/04/17 04:48 05:29 05:29 WBC 10.5 RBC 4.15 Hgb 10.9 L Hct 34.6 L MCV 83 MCH 26.3 L MCHC 31.6 L RDW 16.8 H Plt Count 276 Seg Neutrophils % 76.8 Lymphocytes % 14.2 Monocytes % 7.3 Eosinophils % 0.4 Basophils % 1.3 Absolute Neutrophils 8.1 Absolute Lymphocytes 1.5 Absolute Monocytes 0.8 Absolute Eosinophils 0.0 Absolute Basophils 0.1 Sodium 143.4 Potassium 3.6 Chloride 99 Carbon Dioxide 38 H Anion Gap 6 BUN 3 L Creatinine 0.72 Est GFR ( Amer) > 60 Est GFR (Non-Af Amer) > 60 Glucose 117 H Calcium 9.5 Transferrin 290 Impressions: Chest X-Ray 05/31/17 22:28 IMPRESSION: Moderate interstitial markings. Differential diagnosis includes pulmonary edema, atypical pneumonitis, and/or chronic interstitial lung disease. Qualifiers - * PATEINT BEING DISCHARGED WITH ANY OF THE FOLLOWING DIAGNOSIS?: No Plan Discharge Plan: Patient was discharged home to follow-up with primary care physician in a week she is to continue home CPAP at night She was strongly advised to stop smoking she did not need supplemental O2 at discharge
[2017-06-04] MEDS ORDERED: LINEZOLID 600 MG TABLET PO SCH (22:00)
== END 2017-06-04 12:44 | disposition home or self-care (01) | DRG 871 ==
LOC: ER 22:08 → EH 06-01 01:15 → 3S 06-01 02:32
PROVIDERS: ADMIT Internal Medicine; ATTEND Internal Medicine
PROC: 5A09557 Assistance with Respiratory Ventilation, Greater than 96 Consecutive Hours, Continuous Positive Airway Pressure (ICD-10-PCS; principal; 2017-06-01)
DX: A41.9 Sepsis, unspecified organism (principal); J18.9 Pneumonia, unspecified organism; J44.1 Chronic obstructive pulmonary disease with (acute) exacerbation; J44.0 Chronic obstructive pulmonary disease with (acute) lower respiratory infection; G47.33 Obstructive sleep apnea (adult) (pediatric); D64.9 Anemia, unspecified; M79.7 Fibromyalgia; F32.9 Major depressive disorder, single episode, unspecified; E11.9 Type 2 diabetes mellitus without complications; D50.9 Iron deficiency anemia, unspecified; E78.5 Hyperlipidemia, unspecified; M06.9 Rheumatoid arthritis, unspecified; K21.9 Gastro-esophageal reflux disease without esophagitis; F17.210 Nicotine dependence, cigarettes, uncomplicated; Z79.52 Long term (current) use of systemic steroids; Z91.19 Patient's noncompliance with other medical treatment and regimen; Z90.710 Acquired absence of both cervix and uterus; G62.9 Polyneuropathy, unspecified; R06.89 Other abnormalities of breathing
CPT/HCPCS: 36415; 71045; 80048; 80053; 81001; 82607; 82728; 82746; 82803; 83540; 83550; 83605; 83880; 84466; 85025; 85045; 87040; 87086; 93005; 93010; 94640; 94660; 94667; 94668; 94799; 96365; 96366; 96368; 96375; 99291; J0692; J1644; J1720; J2020; J3370; J3490; J7120; J7512; J7620

== ENCOUNTER 2017-08-28 15:25 | Inpatient (IN) | payer MEDICARE, OTHER ==
--- NOTE | 2017-08-28 15:45 | ER Document Report ---
ED Respiratory Problem - General Stated Complaint: DIFFICULTY BREATHING Time Seen by Provider: 08/28/17 15:42 Notes: Patient brought in because of respiratory difficulties and low oxygen saturation level. Visiting home health nurse says the patient had oxygen levels of 80-82 on room air. She does have home oxygen, using them more often in the past few weeks. She has a history of COPD and is on prednisone as well as inhalers for albuterol and, I believe, albuterol and Atrovent combined. Patient has had some cough and congestion and progressive worsening of her difficulty breathing over the past few weeks or months. Not aware of any fever. Patient does continue to smoke cigarettes. TRAVEL OUTSIDE OF THE [place] IN LAST 30 DAYS: No - Related Data Allergies/Adverse Reactions: No Known Allergies Allergy (Verified 07/18/15 17:08) Past Medical History - Social History Smoking Status: Current Every Day Smoker Family History: Reviewed & Not Pertinent, COPD - Past Medical History Cardiac Medical History: Reports: Hx Hypercholesterolemia Pulmonary Medical History: Reports: Hx Bronchitis, Hx COPD, Hx Pneumonia - 10 yrs ago last time Endocrine Medical History: Reports: Hx Diabetes Mellitus Type 2 GI Medical History: Reports: Hx Gastroesophageal Reflux Disease Musculoskeltal Medical History: Reports Hx Arthritis - Rheumatoid Psychiatric Medical History: Reports: Hx Depression Past Surgical History: Reports: Hx Hysterectomy - Immunizations Hx Diphtheria, Pertussis, Tetanus Vaccination: No Review of Systems - Review of Systems Notes: REVIEW OF SYSTEMS: CONSTITUTIONAL : Denies fever. CARDIOVASCULAR: Denies chest pain. No peripheral edema present. RESPIRATORY: Has had a cough with congestion and shortness of breath. See HPI. GASTROINTESTINAL: Denies abdominal pain or nausea, vomiting, or diarrhea. GENITOURINARY: Denies difficulty or painful urinating, urinary frequency, blood in urine. MUSCULOSKELETAL: Denies back or neck pain. Denies joint pain or swelling. Negative Homans. SKIN: Denies rash or skin lesions. NEUROLOGICAL: Denies LOC or altered mental status, but, as mentioned, patient is subdued and somnolent. Denies headache. Denies sensory loss or motor deficits. ALL OTHER SYSTEMS REVIEWED AND NEGATIVE. -: Yes ROS unobtainable due to patient's medical condition - Patient too somnolent and weak to answer questions. Knows she is at [place] Physical Exam - Vital signs Vitals: Resp Pulse Ox 15 94 08/28/17 15:34 08/28/17 15:34 Interpretation: Normal, Tachycardic Notes: PHYSICAL EXAMINATION: GENERAL: Sleeping. in no acute distress. Awakens with tactile stimulation or loud verbal stimulation. HEAD: Atraumatic, normocephalic. EYES: Pupils equal round and reactive to light, extraocular movements intact. ENT: oropharynx clear without exudates. Moist mucous membranes. NECK: Normal range of motion, supple. LUNGS: Breath sounds clear and equal bilaterally. No wheezes nor rhonchi heard. HEART: Regular rate and rhythm without murmurs. Sinus tachycardia 111 on EKG. ABDOMEN: Soft, nontender. No guarding or rebound. No masses. BACK: No tenderness throughout entire back. EXTREMITIES: Normal range of motion without pain. Negative Homans bilaterally. No significant pretibial pitting edema. NEUROLOGICAL: Speech sounds sleepy. Gait not tested. Normal sensory, motor, and reflex exams. Awake, alert, and oriented x3. Cranial nerves normal. PSYCH: Normal mood, normal affect. SKIN: Warm, dry, no rashes. Course - Re-evaluation Re-evalutation: 08/28/17 16:08 Patient was started on BiPAP. 08/28/17 17:58 Discussed with hospitalist and patient will be admitted. Patient's PCO2 is 67 and her blood gases. Somewhat more responsive now. Moves and answers questions. - Vital Signs Vital signs: Temp Pulse Resp BP Pulse Ox 98.9 F 15 117/70 98 08/28/17 15:44 08/28/17 17:01 08/28/17 17:00 08/28/17 16:01 - Laboratory Result Diagrams: 08/28/17 15:50 08/28/17 15:50 Laboratory results interpreted by me: 08/28/17 08/28/17 08/28/17 15:50 15:50 15:50 WBC 14.3 H Hgb 11.0 L Hct 34.5 L MCHC 31.8 L RDW 17.8 H Absolute Neutrophils 11.0 H Carbonic Acid 2.04 H ABG pH 7.34 L ABG pCO2 67.9 H ABG pO2 101.8 H ABG HCO3 36.1 H ABG Total CO2 38.2 H Chloride 94 L Carbon Dioxide 39 H Glucose 134 H Total Protein 6.0 L Albumin 3.4 L - Diagnostic Test Radiology results interpreted by me: 08/28/17 18:00 Chest x-ray shows cardiac enlargement. No pneumonia seen. Perhaps some mild pulmonary vascular congestion. - EKG Interpretation by Me EKG shows normal: Sinus rhythm Rate: Tachycardia When compared to previous EKG there are: No significant change - Tachycardia at 122 on 05/31/2017. Discharge - Discharge Clinical Impression: COPD (chronic obstructive pulmonary disease), Hypercapnia Condition: Fair Disposition: ADMITTED INPATIENT Admitting Provider: Hospitalist Unit Admitted: Telemetry Referrals: JULIA SORIANO MD [Primary Care Provider] - Follow up as needed
[2017-08-28] MEDS ORDERED: METHYLPREDNISOLONE INJ 125 MG/2 ML SDV IV ONE (16:02)
[2017-08-28 16:19] LABS: ABSOLUTE BASOPHILS # (AUTO) 0.1 10^3/uL (0.0-0.2); ABSOLUTE EOSINOPHILS # (AUTO) 0.4 10^3/uL (0.0-0.6); ABSOLUTE LYMPHOCYTES (AUTO) 2.1 10^3/uL (0.5-4.7); ABSOLUTE MONOCYTES (AUTO) 0.8 10^3/uL (0.1-1.4); BASOPHILS % (AUTO) 0.4 % (0-2); EOSINOPHILS % (AUTO) 2.7 % (0-6); HEMATOCRIT 34.5 % (36.0-47.0); LYMPHOCYTES % (AUTO) 14.5 % (13-45); MEAN CORPUSCULAR HEMOGLOBIN 27.1 pg (27.0-33.4); MEAN CORPUSCULAR HGB CONC 31.8 g/dL (32.0-36.0); MEAN CORPUSCULAR VOLUME 85 fl (80-97); MONOCYTES % (AUTO) 5.6 % (3-13); PLATELET COUNT 292 10^3/uL (150-450); RED BLOOD COUNT 4.05 10^6/uL (3.72-5.28); RED CELL DISTRIBUTION WIDTH 17.8 % (11.5-14.0); SEGMENTED NEUTROPHILS % (AUTO) 76.8 % (42-78); TOTAL CELLS COUNTED % (AUTO) 100 %; WHITE BLOOD COUNT 14.3 10^3/uL (4.0-10.5)
[2017-08-28 16:27] LABS: ARTERIAL BLOOD BASE EXCESS 8.3 mmol/L; ARTERIAL BLOOD H2CO3 2.04 mmol/L (1.05-1.35); ARTERIAL BLOOD HCO3 36.1 mmol/L (20-26); ARTERIAL BLOOD O2 SATURATION 97.1 % (94-98); ARTERIAL BLOOD PCO2 67.9 mmHg (35-45); ARTERIAL BLOOD PH 7.34 (7.35-7.45); ARTERIAL BLOOD PO2 101.8 mmHg (80-100); ARTERIAL BLOOD TOTAL CO2 38.2 mmol/L (21-25)
[2017-08-28 16:31] LABS: ARTERIAL BLOOD FIO2 4L
--- NOTE | 2017-08-28 16:32 | RADIOLOGY REPORT (SQ) ---
EXAM DESCRIPTION: CHEST SINGLE VIEW COMPLETED DATE/TIME: 08/28/2017 4:24 pm REASON FOR STUDY: COPD, SOB, decreased O2 sat COMPARISON: 05/31/2017 EXAM PARAMETERS: NUMBER OF VIEWS: One view. TECHNIQUE: Single frontal radiographic view of the chest acquired. RADIATION DOSE: NA LIMITATIONS: None. FINDINGS: LUNGS AND PLEURA: Chronic interstitial changes are suggested. MEDIASTINUM AND HILAR STRUCTURES: No masses. Contour normal. HEART AND VASCULAR STRUCTURES: Cardiomegaly. No pulmonary edema. BONES: No acute findings. HARDWARE: None in the chest. OTHER: No other significant finding. IMPRESSION: Chronic lung changes. Cardiomegaly without andrea CHF. TECHNICAL DOCUMENTATION: JOB ID: [id number] [employer]- All Rights Reserved Reading location - IP/workstation name: [email or web address]
[2017-08-28 16:42] LABS: ALANINE AMINOTRANSFERASE 29 U/L (9-52); ALBUMIN 3.4 g/dL (3.5-5.0); ALKALINE PHOSPHATASE 121 U/L (38-126); ASPARTATE AMINO TRANSFERASE 27 U/L (14-36); BILIRUBIN,DIRECT 0.4 mg/dL (0.0-0.4); BILIRUBIN,TOTAL 0.5 mg/dL (0.2-1.3); BLOOD UREA NITROGEN 9 mg/dL (7-20); CALCIUM 8.8 mg/dL (8.4-10.2); CHLORIDE 94 mmol/L (98-107); GLUCOSE 134 mg/dL (75-110)
[2017-08-28 16:48] LABS: ANION GAP 10 (5-19); CARBON DIOXIDE 39 mmol/L (22-30)
[2017-08-28 16:55] LABS: TROPONIN I 0.042 ng/mL
[2017-08-28 17:22] LABS: APPEARANCE,URINE CLEAR; BILIRUBIN,URINE NEGATIVE (NEGATIVE); COLOR,URINE STRAW; GLUCOSE, URINE NEGATIVE (NEGATIVE); KETONES,URINE NEGATIVE (NEGATIVE); LEUKOCYTE ESTERASE,URINE NEGATIVE (NEGATIVE); NITRITE,URINE NEGATIVE (NEGATIVE); PROTEIN,URINE NEGATIVE (NEGATIVE); URINE SPECIFIC GRAVITY 1.002; UROBILINOGEN,URINE NEGATIVE mg/dL (<2.0)
[2017-08-28] MEDS ORDERED: ONDANSETRON 4 MG TAB.RAPDIS PO PRN (17:51)
[2017-08-28] MEDS ORDERED: ALBUTEROL SULFATE 0.083% NEB 2.5 MG/3 ML AMPUL NEB PRN (17:51)
[2017-08-28] MEDS ORDERED: ONDANSETRON HCL INJ/PF 4 MG/2 ML SDV IV PRN (17:51)
[2017-08-28] MEDS ORDERED: ACETAMINOPHEN 325 MG TABLET PO PRN (17:51)
[2017-08-28] MEDS ORDERED: CYCLOBENZAPRINE HCL 10 MG TABLET PO SCH (18:00)
[2017-08-28] MEDS ORDERED: METHYLPREDNISOLONE INJ 40 MG/1 ML SDV IV SCH (18:15)
[2017-08-28] MEDS ORDERED: (PENDING PHARMACY ID) (Oxycodone Hcl [Oxycodone Hcl 10 Mg Tablet] 5 MG) PO PRN (18:36)
--- NOTE | 2017-08-28 18:49 | PDOC H&P ---
History of Present Illness Admission Date/PCP: 08/28/17 18:14 JULIA SORIANO MD Patient complains of: Shortness of breath History of Present Illness: MARIANA MCCLURE is a 71 year old female with Chronic hypoxic respiratory failure due to COPD on home oxygen and steroid dependence Ongoing tobacco use, smokes 1 pack per day Chronic pain, opiate dependent, continuous use Obstructive sleep apnea, not compliant with CPAP Peripheral neuropathy Anemia of chronic disease and iron deficiency She presented to the hospital with shortness of breath and was found to be hypoxic and wheezing. She was placed on BiPAP, treated with IV Solu-Medrol and referred for admission. The patient reports progressively worsening shortness of breath over the past few days. Visiting home health nurse found to be getting more short of breath and referred her to the emergency room. The patient requests to be a full code. Past Medical History Cardiac Medical History: Reports: Hyperlipidema Pulmonary Medical History: Reports: Bronchitis, Chronic Obstructive Pulmonary Disease (COPD), Pneumonia - 10 yrs ago last time Endocrine Medical History: Reports: Diabetes Mellitus Type 2 GI Medical History: Reports: Gastroesophageal Reflux Disease Musculoskeltal Medical History: Reports: Arthritis - Rheumatoid Psychiatric Medical History: Reports: Depression Hematology: Reports: Anemia - when in her 20's Past Surgical History Past Surgical History: Reports: Hysterectomy Social History Smoking Status: Current Every Day Smoker Frequency of Alcohol Use: Social Hx Recreational Drug Use: Yes Drugs: None Hx Prescription Drug Abuse: No Family History Family History: Hypertension Parental Family History Reviewed: Yes Children Family History Reviewed: Yes Sibling(s) Family History Reviewed.: Yes Medication/Allergy Home Medications: RX: Albuterol Sulfate [Proventil Hfa] 1 puff IH Q4HP PRN 06/01/17 RX: Cyclobenzaprine HCl [Flexeril 10 mg Tablet] 10 mg PO TID 06/01/17 RX: Duloxetine HCl [Cymbalta] 60 mg PO DAILY 06/01/17 RX: Ergocalciferol (Vitamin D2) [Drisdol 50,000 unit (1.25MG) Capsule] 50,000 unit PO WE 06/01/17 RX: Gabapentin [Neurontin 300 mg Capsule] 300 mg PO Q12 06/01/17 RX: Oxycodone HCl [Oxycodone HCl 10 MG Tablet] 10 mg PO Q12 06/01/17 RX: Oxycodone HCl [Oxycontin] 15 mg PO Q12 06/01/17 RX: Pantoprazole Sodium [Protonix] 40 mg PO DAILY 06/01/17 RX: Pravastatin Sodium [Pravachol] 40 mg PO DAILY 06/01/17 Levofloxacin [Levaquin 750 mg Tablet] 750 mg PO DAILY #10 tab 06/04/17 Nicotine [Nicoderm 14 mg/24 Hr Transdermal Patch] 1 patch TD DAILY 30 Days #30 patch.td24 06/04/17 RX: Ferrous Sulfate [Feosol 325 mg Tablet] 325 mg PO NOON 30 Days #30 tablet RX: Fluticasone Propionate [Flonase Nasal [place] 50 Mcg/[place] 16 gm] 2 spray NASL Q12 #1 spray.pump 06/04/17 RX: Guaifenesin [Mucinex Sr 600 mg Tablet.sa] 600 mg PO Q12 10 Days #20 tablet.sa 06/04/17 RX: Ipratropium/Albuterol Sulfate [Duoneb 3 ml Ampul] 3 ml NEB RTQ8 30 Days #30 vial.neb 06/04/17 RX: Prednisone [Deltasone 20 mg Tablet] 20 mg PO DAILY 14 Days #14 tablet Allergies/Adverse Reactions: No Known Allergies Allergy (Verified 07/18/15 17:08) Review of Systems Constitutional: ABSENT: fever(s) Eyes: ABSENT: visual disturbances Ears: ABSENT: hearing changes Nose, Mouth, and Throat: ABSENT: sore throat Cardiovascular: ABSENT: edema Respiratory: PRESENT: cough, dyspnea Gastrointestinal: ABSENT: vomiting Genitourinary: ABSENT: dysuria Integumentary: ABSENT: pruritus Neurological: ABSENT: focal weakness Psychiatric: ABSENT: hallucinations Endocrine: ABSENT: heat intolerance Hematologic/Lymphatic: ABSENT: easy bleeding Allergic/Immunologic: ABSENT: seasonal rhinorrhea Physical Exam Vital Signs: Temp Pulse Resp BP Pulse Ox 98.9 F 14 127/64 H 97 08/28/17 15:44 08/28/17 18:01 08/28/17 18:00 08/28/17 18:01 General appearance: PRESENT: obese Head exam: PRESENT: normocephalic Eye exam: PRESENT: PERRLA. ABSENT: scleral icterus Ear exam: PRESENT: normal external ear exam Mouth exam: PRESENT: moist Neck exam: PRESENT: other - On BiPAP. ABSENT: tracheal deviation Respiratory exam: PRESENT: rhonchi, symmetrical, wheezes Cardiovascular exam: PRESENT: RRR GI/Abdominal exam: PRESENT: normal bowel sounds, soft Rectal exam: PRESENT: deferred Gentrourinary exam: PRESENT: indwelling catheter Extremities exam: ABSENT: pedal edema Neurological exam: PRESENT: oriented to person, oriented to place, oriented to time, oriented to situation, other - Drowsy but arousable Psychiatric exam: ABSENT: agitated Skin exam: ABSENT: petechiae Results Impressions: Chest X-Ray 08/28/17 15:58 IMPRESSION: Chronic lung changes. Cardiomegaly without andrea CHF. Assessment & Plan - Diagnosis (1) Acute on chronic respiratory failure with hypoxia and hypercapnia Is this a current diagnosis for this admission?: Yes Plan: Due to COPD exacerbation (2) COPD exacerbation Is this a current diagnosis for this admission?: Yes Plan: BiPAP, nebs, IV steroids. (3) Nicotine dependence Is this a current diagnosis for this admission?: Yes Plan: Nicotine patch prn (4) Obstructive sleep apnea Is this a current diagnosis for this admission?: Yes Plan: Continue BiPAP. (5) Peripheral neuropathy Is this a current diagnosis for this admission?: Yes Plan: Continue gabapentin. (6) Chronic pain Qualifiers: Chronic pain type: chronic pain syndrome Qualified Code(s): G89.4 - Chronic pain syndrome Is this a current diagnosis for this admission?: Yes Plan: Opiate dependent. Hold OxyContin for tonight. Continue to monitor closely, minimize opiate use. (7) DVT prophylaxis Is this a current diagnosis for this admission?: Yes Plan: Subcutaneous Lovenox - Time Time Spent: 50 to 70 Minutes
[2017-08-28 19:26] LABS: PHOSPHORUS 4.8 mg/dL (2.5-4.5)
[2017-08-28] MEDS: IPRATROPIUM/ALBUTEROL 0.5-2.5 MG/3 ML AMPUL NEB SCH (19:59)
[2017-08-28] MEDS ORDERED: OXYCODONE-ACETAMINOPHEN 5-325 MG TABLET PO PRN (20:09)
[2017-08-28] MEDS ORDERED: OXYCODONE HCL IR 5 MG TABLET PO PRN (20:10)
[2017-08-28] MEDS ORDERED: ENOXAPARIN SODIUM INJ 40 MG/0.4 ML DISP.SYRIN SUBCUT ONE (21:00)
--- NOTE | 2017-08-28 21:42 | EKG REPORT ---
SEVERITY:- ABNORMAL ECG - SINUS TACHYCARDIA PROBABLE LEFT ATRIAL ABNORMALITY REPOL ABNRM SUGGESTS ISCHEMIA, ANT-LAT LEADS : Confirmed by: Misty Lucio MD 28-Aug-2017 21:41:28
[2017-08-28] MEDS ORDERED: (PENDING PHARMACY ID) (Oxycodone Hcl [Oxycontin] 15 MG) PO SCH (22:00)
[2017-08-28] MEDS ORDERED: NALOXONE HCL INJ/PF 0.4 MG/1 ML SDV ONE (23:14)
[2017-08-28] MEDS ORDERED: NALOXONE HCL INJ/PF 0.4 MG/1 ML SDV IV ONE (23:45)
[2017-08-29] MEDS: GUAIFENESIN 600 MG TABLET.SA PO SCH ×3 (00:02→21:53)
[2017-08-29] MEDS: GABAPENTIN 300 MG CAPSULE PO SCH ×3 (00:02→21:52)
[2017-08-29] MEDS: FLUTICASONE NASAL SPRAY 50 MCG/SPRY 120 SPRAY/16 GM NASL SCH ×3 (00:02→21:54)
[2017-08-29] MEDS: ATORVASTATIN CALCIUM 10 MG TABLET PO SCH ×2 (00:02→21:53)
[2017-08-29 00:10] LABS: ARTERIAL BLOOD BASE EXCESS 11.1 mmol/L; ARTERIAL BLOOD HCO3 36.8 mmol/L (20-26); ARTERIAL BLOOD O2 SATURATION 97.3 % (94-98); ARTERIAL BLOOD PCO2 53.3 mmHg (35-45); ARTERIAL BLOOD PH 7.46 (7.35-7.45); ARTERIAL BLOOD PO2 93.3 mmHg (80-100); ARTERIAL BLOOD TOTAL CO2 38.4 mmol/L (21-25)
[2017-08-29 00:15] LABS: ARTERIAL BLOOD FIO2 40%
[2017-08-29] MEDS: METHYLPREDNISOLONE INJ 125 MG/2 ML SDV IV SCH ×2 (00:24→05:26)
[2017-08-29] MEDS: PANTOPRAZOLE SODIUM 40 MG VIAL IV SCH ×3 (00:24→21:53)
[2017-08-29] MEDS: IPRATROPIUM/ALBUTEROL 0.5-2.5 MG/3 ML AMPUL NEB SCH ×4 (02:56→20:18)
[2017-08-29] MEDS ORDERED: (PENDING PHARMACY ID) (Pravastatin Sodium [Pravachol] 40 MG) PO SCH (10:00)
[2017-08-29] MEDS ORDERED: METHYLPREDNISOLONE INJ 125 MG/2 ML SDV IV SCH (10:48)
[2017-08-29] MEDS ORDERED: GLUCAGON,HUMAN RECOMB 1 MG INJ IM PRN (10:49)
[2017-08-29] MEDS: DULOXETINE HCL 30 MG CAPSULE.DR PO SCH (10:49)
[2017-08-29] MEDS ORDERED: DEXTROSE 40% GEL 15 GM TUBE PO PRN ×2 (10:49)
[2017-08-29] MEDS ORDERED: DEXTROSE 50%-WATER 25 GM/50 ML DISP.SYRIN IV PRN ×2 (10:49)
[2017-08-29] MEDS: ENOXAPARIN SODIUM INJ 40 MG/0.4 ML DISP.SYRIN SUBCUT SCH (10:50)
[2017-08-29] MEDS: NICOTINE 14 MG/24 HR PATCH.TD24 TD SCH (10:51)
[2017-08-29] MEDS: INSULIN LISPRO 100 UNIT/ML 3 ML VIAL SUBCUT PRN ×2 (13:44→22:46)
[2017-08-29] MEDS: FERROUS SULFATE 325 MG TABLET PO SCH (13:44)
[2017-08-29] MEDS: METHYLPREDNISOLONE INJ 40 MG/1 ML SDV IV SCH ×2 (13:44→21:54)
--- NOTE | 2017-08-29 16:51 | PDOC PROGRESS REPORT ---
Subjective Progress Note for:: 08/29/17 Subjective:: No complaints at present. She required narcan overnight due to reduced responsiveness. More awake this am. Opiates have been on hold since admission. daughter is at the bedside and plan of care was discussed Reason For Visit: COPD EXACERBATION Physical Exam Vital Signs: Temp Pulse Resp BP Pulse Ox 97.9 F 109 H 21 H 149/68 H 96 08/29/17 07:28 08/29/17 14:30 08/29/17 14:30 08/29/17 07:28 08/29/17 15:57 Intake & Output 08/28/17 08/29/17 08/30/17 06:59 06:59 06:59 Intake Total 23 Output Total 0 Balance 23 Weight 78.2 kg General appearance: PRESENT: no acute distress Head exam: PRESENT: normocephalic Eye exam: PRESENT: PERRLA Mouth exam: PRESENT: moist Respiratory exam: PRESENT: symmetrical, wheezes Cardiovascular exam: PRESENT: RRR GI/Abdominal exam: PRESENT: normal bowel sounds, soft. ABSENT: tenderness Rectal exam: PRESENT: deferred Neurological exam: PRESENT: awake Skin exam: ABSENT: jaundice Results Laboratory Results: 08/28/17 23:55 Carbonic Acid 1.60 H HCO3/H2CO3 Ratio 23:1 ABG pH 7.46 H ABG pCO2 53.3 H ABG pO2 93.3 ABG HCO3 36.8 H ABG O2 Saturation 97.3 ABG Base Excess 11.1 FiO2 40% Impressions: Chest X-Ray 08/28/17 15:58 IMPRESSION: Chronic lung changes. Cardiomegaly without andrea CHF. Assessment & Plan - Diagnosis (1) Acute on chronic respiratory failure with hypoxia and hypercapnia Is this a current diagnosis for this admission?: Yes Plan: Due to COPD exacerbation (2) COPD exacerbation Is this a current diagnosis for this admission?: Yes Plan: BiPAP, nebs, IV steroids. (3) Nicotine dependence Is this a current diagnosis for this admission?: Yes Plan: Nicotine patch prn (4) Obstructive sleep apnea Is this a current diagnosis for this admission?: Yes Plan: Continue BiPAP. (5) Peripheral neuropathy Is this a current diagnosis for this admission?: Yes Plan: Continue gabapentin. (6) Chronic pain Qualifiers: Chronic pain type: chronic pain syndrome Qualified Code(s): G89.4 - Chronic pain syndrome Is this a current diagnosis for this admission?: Yes Plan: Opiates on hold (7) DVT prophylaxis Is this a current diagnosis for this admission?: Yes Plan: Subcutaneous Lovenox - Time Time Spent with patient: 25-34 minutes
[2017-08-29] MEDS: CYCLOBENZAPRINE HCL 10 MG TABLET PO PRN (17:34)
[2017-08-29] MEDS: RISPERIDONE 0.25 MG TABLET PO SCH (21:53)
[2017-08-29] MEDS ORDERED: (PENDING PHARMACY ID) (Oxycodone Hcl [Oxycontin] 15 MG) PO SCH (22:00)
[2017-08-30] MEDS: IPRATROPIUM/ALBUTEROL 0.5-2.5 MG/3 ML AMPUL NEB SCH ×4 (01:13→20:55)
[2017-08-30 04:33] LABS: HEMATOCRIT 35.5 % (36.0-47.0); HEMOGLOBIN 11.5 g/dL (12.0-15.5); MEAN CORPUSCULAR HEMOGLOBIN 27.5 pg (27.0-33.4); MEAN CORPUSCULAR HGB CONC 32.5 g/dL (32.0-36.0); MEAN CORPUSCULAR VOLUME 85 fl (80-97); PLATELET COUNT 278 10^3/uL (150-450); RED CELL DISTRIBUTION WIDTH 18.1 % (11.5-14.0); WHITE BLOOD COUNT 14.1 10^3/uL (4.0-10.5)
[2017-08-30 04:50] LABS: ALANINE AMINOTRANSFERASE 29 U/L (9-52); ALBUMIN 3.4 g/dL (3.5-5.0); ALKALINE PHOSPHATASE 106 U/L (38-126); ANION GAP 10 (5-19); ASPARTATE AMINO TRANSFERASE 20 U/L (14-36); BILIRUBIN,DIRECT 0.4 mg/dL (0.0-0.4); BILIRUBIN,TOTAL 0.4 mg/dL (0.2-1.3); BLOOD UREA NITROGEN 16 mg/dL (7-20); CALCIUM 9.1 mg/dL (8.4-10.2); CARBON DIOXIDE 38 mmol/L (22-30); CHLORIDE 98 mmol/L (98-107); GLUCOSE 164 mg/dL (75-110); PHOSPHORUS 3.9 mg/dL (2.5-4.5); POTASSIUM 3.5 mmol/L (3.6-5.0); SODIUM 145.6 mmol/L (137-145); TOTAL PROTEIN 6.2 g/dL (6.3-8.2)
[2017-08-30 05:23] LABS: ABSOLUTE LYMPHOCYTES# (MANUAL) 0.4 10^3/uL (0.5-4.7); ABSOLUTE MONOCYTES # (MANUAL) 0.3 10^3/uL (0.1-1.4); ABSOLUTE NEUTROPHILS# (MANUAL) 13.4 10^3/uL (1.7-8.2); BAND NEUTROPHILS % (MANUAL) 2 % (3-5); BASOPHILS % (MANUAL) 0 % (0-2); EOSINOPHILS % (MANUAL) 0 % (0-6); LYMPHOCYTES % (MANUAL) 3 % (13-45); MONOCYTES % (MANUAL) 2 % (3-13); SEGMENTED NEUTROPHILS % (MAN) 93 % (42-78); TOTAL CELLS COUNTED 100
[2017-08-30 05:24] LABS: PLATELET COMMENT ADEQUATE
[2017-08-30 05:26] LABS: ANISOCYTOSIS 2+; HYPOCHROMASIA 1+; POLYCHROMASIA SLIGHT
[2017-08-30] MEDS: METHYLPREDNISOLONE INJ 40 MG/1 ML SDV IV SCH ×3 (05:56→21:22)
[2017-08-30] MEDS: NICOTINE 14 MG/24 HR PATCH.TD24 TD SCH (10:22)
[2017-08-30] MEDS: GUAIFENESIN 600 MG TABLET.SA PO SCH ×2 (10:23→21:14)
[2017-08-30] MEDS: GABAPENTIN 300 MG CAPSULE PO SCH ×2 (10:23→19:16)
[2017-08-30] MEDS: FLUTICASONE NASAL SPRAY 50 MCG/SPRY 120 SPRAY/16 GM NASL SCH ×2 (10:23→21:16)
[2017-08-30] MEDS: ENOXAPARIN SODIUM INJ 40 MG/0.4 ML DISP.SYRIN SUBCUT SCH (10:23)
[2017-08-30] MEDS: DULOXETINE HCL 30 MG CAPSULE.DR PO SCH (10:23)
[2017-08-30] MEDS: PANTOPRAZOLE SODIUM 40 MG VIAL IV SCH ×2 (10:24→21:22)
[2017-08-30] MEDS: INSULIN LISPRO 100 UNIT/ML 3 ML VIAL SUBCUT PRN ×2 (10:38→13:16)
[2017-08-30] MEDS: FERROUS SULFATE 325 MG TABLET PO SCH (11:01)
[2017-08-30] MEDS ORDERED: BISACODYL 5 MG TABEC PO ONE (11:30)
[2017-08-30] MEDS: CYCLOBENZAPRINE HCL 10 MG TABLET PO PRN ×2 (13:20→21:15)
--- NOTE | 2017-08-30 14:27 | PDOC DISCHARGE SUMMARY ---
General - Admit/Disc Date/PCP Admission Date/Primary Care Provider: 08/28/17 18:14 JULIA SORIANO MD Discharge Date: 08/30/17 - Discharge Diagnosis (1) Altered mental status Is this a current diagnosis for this admission?: Yes Summary: Secondary to side effects of long acting opiates in the setting of RAJWINDER- resulting in obtundation and requiring Narcan administration. (2) Acute on chronic respiratory failure with hypoxia and hypercapnia Is this a current diagnosis for this admission?: Yes Summary: Secondary to side effects of long acting opiates in the setting of RAJWINDER- resulting in obtundation and requiring Narcan administration. Oxycontin stopped. (3) COPD exacerbation Is this a current diagnosis for this admission?: Yes (4) Nicotine dependence Is this a current diagnosis for this admission?: Yes (5) Obstructive sleep apnea Is this a current diagnosis for this admission?: Yes (6) Peripheral neuropathy Is this a current diagnosis for this admission?: Yes (7) Chronic pain Is this a current diagnosis for this admission?: Yes (8) DVT prophylaxis Is this a current diagnosis for this admission?: Yes - Additional Information Resuscitation Status: Full Code Discharge Diet: As Tolerated, Regular Prescriptions: Oxycodone HCl 5 mg PO Q6HP PRN 4 Days #18 capsule PRN Reason: For Pain Scale 4-5 Fluticasone/Salmeterol [Advair 250-50 Diskus 28 dose] 1 inh IH Q12H #1 inhaler Nicotine [Nicoderm 14 mg/24 Hr Transdermal Patch] 1 each TD DAILY 30 Days #30 patch.td24 Prednisone [Deltasone 20 mg Tablet] 60 mg PO DAILY #13 tablet Home Medications: Albuterol Sulfate [Albuterol Sulfate 2.5mg/3 mL] 1 vial IH RTQ4HP PRN 08/28/17 Albuterol Sulfate [Proair HFA] 2 puff IH Q4HP PRN 08/28/17 Cholecalciferol (Vitamin D3) [Vitamin D3 400 Unit Tablet] 400 unit PO DAILY 01/05 Duloxetine HCl [Cymbalta] 60 mg PO DAILY 08/28/17 Ergocalciferol (Vitamin D2) [Vitamin D2] 50,000 unit PO RIVERO@1000 08/28/17 Gabapentin [Neurontin 300 mg Capsule] 300 mg PO Q12 08/28/17 Pantoprazole Sodium [Protonix] 40 mg PO Q6AM 08/28/17 Pravastatin Sodium [Pravachol] 40 mg PO DAILY 08/28/17 Prednisone [Deltasone 10 mg Tablet] 10 mg PO DAILY 08/28/17 Risperidone [Risperdal 0.25 mg Tablet] 0.25 mg PO QHS 08/28/17 Sennosides/Docusate Sodium [Senna-S Tablet] 1 each PO DAILYP PRN 08/28/17 Tiotropium Br/Olodaterol HCl [Stiolto Respimat Inhal [place]] 2 puff IH DAILY 01/05 Cyclobenzaprine HCl [Flexeril 10 mg Tablet] 5 mg PO Q8HP PRN tablet 08/30/17 Ferrous Sulfate [Feosol 325 mg Tablet] 325 mg PO NOON tablet 08/30/17 Fluticasone Propionate [Flonase Nasal [place] 50 Mcg/[place] 16 gm] 2 spray NASL Q12 spray.pump 08/30/17 Fluticasone/Salmeterol [Advair 250-50 Diskus 28 dose] 1 inh IH Q12H #1 inhaler 08/30/17 Gabapentin [Neurontin 300 mg Capsule] 300 mg PO Q12 capsule 08/30/17 Ipratropium/Albuterol Sulfate [Duoneb 3 ml Ampul] 3 ml NEB RTQ6HP PRN #0 Nicotine [Nicoderm 14 mg/24 Hr Transdermal Patch] 1 each TD DAILY 30 Days #30 patch.td24 08/30/17 Oxycodone HCl 5 mg PO Q6HP PRN 4 Days #18 capsule 08/30/17 Prednisone [Deltasone 20 mg Tablet] 60 mg PO DAILY #13 tablet 08/30/17 History of Present Illness History of Present Illness: MARIANA MCCLURE is a 71 year old female with Chronic hypoxic respiratory failure due to COPD on home oxygen and steroid dependence Ongoing tobacco use, smokes 1 pack per day Chronic pain, opiate dependent, continuous use Obstructive sleep apnea, not compliant with CPAP Peripheral neuropathy Anemia of chronic disease and iron deficiency She presented to the hospital with shortness of breath and altered mental status was found to be hypoxic and wheezing. She was placed on BiPAP, treated with IV Solu-Medrol and referred for admission. The patient reports progressively worsening shortness of breath over the past few days. Visiting home health nurse found to be getting more short of breath and referred her to the emergency room. Overnight, the patient was obtunded and woke up after Narcan administration. Oxycontin was discontinued. She was urged to use only short acting Oxycodone judiciously and to be compliant with CPAP use. Her wheezing and dyspnea improved. The patient has oxygen at home and home health will also be resumed. She is to follow-up with her primary care physician in 1 week. Hospital Course Hospital Course: As above Physical Exam Vital Signs: Temp Pulse Resp BP Pulse Ox 97.3 F 102 H 19 133/56 H 100 08/30/17 03:13 08/30/17 14:13 08/30/17 14:13 08/30/17 03:13 08/30/17 03:50 Intake & Output 08/29/17 08/30/17 08/31/17 06:59 06:59 06:59 Intake Total 23 879 Output Total 0 1725 Balance 23 -846 Weight 78.2 kg 77.2 kg General appearance: PRESENT: no acute distress Respiratory exam: PRESENT: rhonchi, symmetrical Neurological exam: PRESENT: alert, awake Results Laboratory Results: 08/30/17 03:50 08/30/17 03:50 08/30/17 08/30/17 03:50 03:50 WBC 14.1 H RBC 4.20 Hgb 11.5 L Hct 35.5 L MCV 85 MCH 27.5 MCHC 32.5 RDW 18.1 H Plt Count 278 Seg Neutrophils % Not Reportable Lymphocytes % Not Reportable Monocytes % Not Reportable Eosinophils % Not Reportable Basophils % Not Reportable Absolute Neutrophils Not Reportable Absolute Lymphocytes Not Reportable Absolute Monocytes Not Reportable Absolute Eosinophils Not Reportable Absolute Basophils Not Reportable Sodium 145.6 H Potassium 3.5 L Chloride 98 Carbon Dioxide 38 H Anion Gap 10 BUN 16 Creatinine 0.70 Est GFR ( Amer) > 60 Est GFR (Non-Af Amer) > 60 Glucose 164 H Calcium 9.1 Phosphorus 3.9 Magnesium 2.5 H Total Bilirubin 0.4 AST 20 ALT 29 Alkaline Phosphatase 106 Total Protein 6.2 L Albumin 3.4 L Impressions: Chest X-Ray 08/28/17 15:58 IMPRESSION: Chronic lung changes. Cardiomegaly without andrea CHF. Qualifiers - * PATIENT BEING DISCHARGED WITH ANY OF THE FOLLOWING DIAGNOSIS: No Plan Time Spent: Greater than 30 Minutes
[2017-08-30 20:05] VITALS: BP 137/62
[2017-08-30] MEDS: RISPERIDONE 0.25 MG TABLET PO SCH (21:14)
[2017-08-30] MEDS: ATORVASTATIN CALCIUM 10 MG TABLET PO SCH (21:15)
== END 2017-08-30 21:21 | disposition home health service (06) | DRG 190 ==
LOC: ER 15:25 → EH 18:14 → 3N 20:55
PROVIDERS: ADMIT Internal Medicine; ATTEND Internal Medicine
PROC: 5A09457 Assistance with Respiratory Ventilation, 24-96 Consecutive Hours, Continuous Positive Airway Pressure (ICD-10-PCS; principal; 2017-08-28)
PROC: 3E0F73Z Introduction of Anti-inflammatory into Respiratory Tract, Via Natural or Artificial Opening (ICD-10-PCS; 2017-08-28)
DX: J44.1 Chronic obstructive pulmonary disease with (acute) exacerbation (principal); J96.22 Acute and chronic respiratory failure with hypercapnia; J96.21 Acute and chronic respiratory failure with hypoxia; F11.20 Opioid dependence, uncomplicated; F17.210 Nicotine dependence, cigarettes, uncomplicated; G47.33 Obstructive sleep apnea (adult) (pediatric); G62.9 Polyneuropathy, unspecified; D63.8 Anemia in other chronic diseases classified elsewhere; D50.9 Iron deficiency anemia, unspecified; E78.00 Pure hypercholesterolemia, unspecified; E11.9 Type 2 diabetes mellitus without complications; K21.9 Gastro-esophageal reflux disease without esophagitis; M06.9 Rheumatoid arthritis, unspecified; G89.4 Chronic pain syndrome; E66.9 Obesity, unspecified; Z68.33 Body mass index [BMI] 33.0-33.9, adult; R00.0 Tachycardia, unspecified; F32.9 Major depressive disorder, single episode, unspecified; Z79.899 Other long term (current) drug therapy; Z79.52 Long term (current) use of systemic steroids; Z99.81 Dependence on supplemental oxygen; Z91.19 Patient's noncompliance with other medical treatment and regimen; Z90.710 Acquired absence of both cervix and uterus; Z82.49 Family history of ischemic heart disease and other diseases of the circulatory system
CPT/HCPCS: 36415; 36600; 51702; 71045; 80053; 81001; 82803; 82962; 83036; 83735; 83880; 84100; 84484; 85025; 93005; 93010; 94640; 94660; 96374; 99285; J1650; J1815; J2310; J2920; J2930; J3490; J7620; S0164

== ENCOUNTER 2017-09-26 22:13 | Inpatient (IN) | payer MEDICARE, OTHER ==
[2017-09-26] MEDS ORDERED: NORMAL SALINE 1000 ML 1,000 ML IV ONE (22:58)
[2017-09-26] MEDS ORDERED: DIPHENHYDRAMINE HCL 50 MG/ML VIAL IV ONE (22:59)
[2017-09-26] MEDS ORDERED: HALOPERIDOL LACTATE INJ 5 MG/1 ML VIAL IV ONE (22:59)
--- NOTE | 2017-09-26 23:02 | ER Document Report ---
ED General - General Mode of Arrival: Medic Information source: Relative Cannot obtain history due to: Altered mental status TRAVEL OUTSIDE OF THE [place] IN LAST 30 DAYS: No <DAILY MARIE - Last Filed: 09/27/17 04:58> <BENITOTSERINGBERTIN - Last Filed: 09/27/17 05:20> - General Stated Complaint: ALTERED MENTAL STATUS Time Seen by Provider: 09/26/17 22:38 Notes: 71 y.o female with early dementia, COPD on 2L oxygen by nasal cannula at home, neuropathy, rheumatoid arthritis and restless leg syndrome presents to the ED via EMS with altered mental status. Pt's daughter, who is the pt's primary caregiver, states that she had talked to her at noon today and she was her normal self and happy but then about 3 hours ago she saw that she missed a phone call from her and tried calling her back about 6-7 times without any answer so went over to her house and the door was open and lights were on but couldn't find her until she looked in the car. She states that when she found her she was drenched in sweat and red and did not know what was happening, more agitated and has been talking some but not making much sense. Daughter reports that she checked her medication bottles and knows that she hasn't taken any of her medications as she shouldn't. Pt's PCP is Dr. Fischer. (DAILY MARIE) - Related Data Allergies/Adverse Reactions: No Known Allergies Allergy (Verified 07/18/15 17:08) Past Medical History - General Information source: Patient - Social History Smoking Status: Current Every Day Smoker Chew tobacco use (# tins/day): No Frequency of alcohol use: None Drug Abuse: None Family History: Hypertension - Past Medical History Cardiac Medical History: Reports: Hx Hypercholesterolemia Pulmonary Medical History: Reports: Hx Bronchitis, Hx COPD, Hx Pneumonia - 10 yrs ago last time Endocrine Medical History: Reports: Hx Diabetes Mellitus Type 2 Renal/ Medical History: Denies: Hx Peritoneal Dialysis GI Medical History: Reports: Hx Gastroesophageal Reflux Disease Musculoskeletal Medical History: Reports Hx Arthritis - Rheumatoid Psychiatric Medical History: Reports: Hx Depression, Other - diagnosed with early dementia Past Surgical History: Reports: Hx Hysterectomy - Immunizations Hx Diphtheria, Pertussis, Tetanus Vaccination: No <DAILY MARIE - Last Filed: 09/27/17 04:58> Review of Systems - Review of Systems Constitutional: No symptoms reported EENT: No symptoms reported Cardiovascular: No symptoms reported Respiratory: No symptoms reported Gastrointestinal: No symptoms reported Genitourinary: No symptoms reported Female Genitourinary: No symptoms reported Musculoskeletal: No symptoms reported Skin: No symptoms reported Hematologic/Lymphatic: No symptoms reported Neurological/Psychological: See HPI, Dementia -: Yes All other systems reviewed and negative <DAILY MARIE - Last Filed: 09/27/17 04:58> Physical Exam <DAILY MARIE - Last Filed: 09/27/17 04:58> <BERTIN PALOMARES - Last Filed: 09/27/17 05:20> - Vital signs Vitals: Resp Pulse Ox 27 H 91 L 09/26/17 22:45 09/26/17 22:45 - Notes Notes: PHYSICAL EXAM GENERAL: Demented and agitated, picking at belongings. HEAD: Normocephalic, atraumatic. EYES: Pupils equal, round, and reactive to light. Extraocular movements intact. ENT: Oral mucosa moist, tongue midline. NECK: Full range of motion. Supple. Trachea midline. LUNGS: No rales, or rhonchi. Expiratory wheezing. No respiratory distress. HEART: Tachycardic rate and regular rhythm. No murmurs, gallops, or rubs. ABDOMEN: Soft, non-tender. Non-distended. Bowel sounds present in all 4 quadrants. No guarding, rebound, or rigidity. EXTREMITIES: Moves all 4 extremities spontaneously. No edema. No cyanosis. NEUROLOGICAL: Mild RT sided facial droop. No weakness to upper or lower extremities. speech is nonsensical. Will no follow commands. PSYCH: Appears agitated. Demented. SKIN: Warm, diaphoretic. Normal turgor. No rashes or lesions noted. (DAILY MARIE) Course - Laboratory Result Diagrams: 09/26/17 23:55 09/26/17 23:55 <DAILY MARIE - Last Filed: 09/27/17 04:58> - Laboratory Result Diagrams: 09/26/17 23:55 09/26/17 23:55 <BERTIN PALOMARES - Last Filed: 09/27/17 05:20> - Re-evaluation Re-evalutation: 09/27/17 05:18 On initial presentation patient was somewhat confused however she rapidly became more confused and more agitated, started pulling out her IVs and pulling off of her leads. Patient was initially given 3 mg of Haldol and 12.5 mg of Benadryl for sedation, I did not want to sedate this COPD or who is known to retain CO2 too far and cause a respiratory arrest or worsening CO2 retention however she continued to become more agitated and did not respond to another 3 mg of Haldol or 1/2 mg of Ativan. Eventually discussed the possibility of using ketamine for agitated delirium with the family and they are agreeable to this plan. Patient was initially given 1 mg/kg dose of ketamine to which she responded nicely but still had some residual agitation that made obtaining the lab work and CT scan and possible so she was given a second dose of 50 mg of ketamine. At this point she was able to be put on BiPAP, all radiologic and laboratory studies were able to be obtained. Studies revealed a normal CT scan of the head, chest x-ray that does not show any acute process but there is chronic interstitial lung disease, CBC shows slight leukocytosis of 11.4, anemia with hemoglobin of 10.6 coags unremarkable, venous blood gas does show acidosis with a PCO2 of 73.4, arterial blood gas was then obtained which revealed a respiratory acidosis with a pH of 7.31, PCO2 of 67 and PO2 of 105.6, bicarb is 33.2. Chemistries reveal elevated sodium at 3.8, lactic acid elevated 2.7 which when repeated after some hydration is 1.7, no evidence of sepsis at this time, troponin is is negative at 0.018, EKG is not a STEMI but has some ST depressions. Urinalysis does not show any signs of infection. Blood and urine cultures were obtained. Patient's altered mental status appears to be coming from CO2 retention however this could have been worsened by some heat stroke as well. Patient was not febrile when she arrived I did discuss the case with Dr. Santiago who agrees to admit the patient to her service on the [facility]. 09/27/17 05:19 (BERTIN PALOMARES) - Vital Signs Vital signs: Temp Pulse Resp BP Pulse Ox 14 135/82 H 100 09/27/17 05:01 09/27/17 05:01 09/27/17 05:01 - Laboratory Laboratory results interpreted by me: 09/26/17 09/26/17 09/26/17 23:55 23:55 23:55 WBC 11.4 H Hgb 10.6 L Hct 33.5 L MCHC 31.7 L RDW 17.3 H Absolute Neutrophils 8.9 H Carbonic Acid ABG pH ABG pCO2 ABG pO2 ABG HCO3 ABG Total CO2 VBG pCO2 VBG HCO3 Sodium 148.1 H Carbon Dioxide 33 H Est GFR (Non-Af Amer) 57 L Glucose 137 H Lactic Acid 2.7 H 09/26/17 09/27/17 23:55 02:10 WBC Hgb Hct MCHC RDW Absolute Neutrophils Carbonic Acid 2.02 H ABG pH 7.31 L ABG pCO2 67.0 H ABG pO2 105.6 H ABG HCO3 33.2 H ABG Total CO2 35.3 H VBG pCO2 73.4 H* VBG HCO3 37.0 H Sodium Carbon Dioxide Est GFR (Non-Af Amer) Glucose Lactic Acid - EKG Interpretation by Me Additional EKG results interpreted by me: 09/27/17 05:19 EKG shows sinus tachycardia at a rate of 117, normal axis, normal also, no ST segment elevations, there are depressions that are very mild noted in V3 through V6 per my interpretation. (BERTIN PALOMARES) Critical Care Note - Critical Care Note Total time excluding time spent on procedures (mins): 55 <BERTIN PALOMARES - Last Filed: 09/27/17 05:20> Discharge <DAILY MARIE - Last Filed: 09/27/17 04:58> - Discharge Admitting Provider: Hospitalist - [facility] Unit Admitted: [facility] <BERTIN PALOMARES - Last Filed: 09/27/17 05:20> - Discharge Clinical Impression: Acute on chronic respiratory failure with hypoxia and hypercapnia, Delirium Condition: Serious Disposition: ADMITTED INPATIENT Referrals: JULIA FISCHER MD [Primary Care Provider] - Follow up as needed Scribe Attestation: 09/27/17 05:20 I personally performed the services described in the documentation, reviewed and edited the documentation which was dictated to the scribe in my presence, and it accurately records my words and actions. (BERTIN PALOMARES) Scribe Documentation - Scribe Written by Scribe:: Og Graves 09/26/17 [id number] acting as scribe for :: Aleksey <DAILY MARIE - Last Filed: 09/27/17 04:58>
[2017-09-27 00:06] LABS: ABSOLUTE BASOPHILS # (AUTO) 0.1 10^3/uL (0.0-0.2); ABSOLUTE EOSINOPHILS # (AUTO) 0.3 10^3/uL (0.0-0.6); ABSOLUTE LYMPHOCYTES (AUTO) 1.5 10^3/uL (0.5-4.7); ABSOLUTE MONOCYTES (AUTO) 0.7 10^3/uL (0.1-1.4); ABSOLUTE NEUT (AUTO) 8.9 10^3/uL (1.7-8.2); BASOPHILS % (AUTO) 0.7 % (0-2); EOSINOPHILS % (AUTO) 2.3 % (0-6); HEMATOCRIT 33.5 % (36.0-47.0); HEMOGLOBIN 10.6 g/dL (12.0-15.5); LYMPHOCYTES % (AUTO) 13.3 % (13-45); MEAN CORPUSCULAR HEMOGLOBIN 27.3 pg (27.0-33.4); MEAN CORPUSCULAR HGB CONC 31.7 g/dL (32.0-36.0); MEAN CORPUSCULAR VOLUME 86 fl (80-97); MONOCYTES % (AUTO) 5.9 % (3-13); PLATELET COUNT 258 10^3/uL (150-450); RED BLOOD COUNT 3.89 10^6/uL (3.72-5.28); RED CELL DISTRIBUTION WIDTH 17.3 % (11.5-14.0); SEGMENTED NEUTROPHILS % (AUTO) 77.8 % (42-78); TOTAL CELLS COUNTED % (AUTO) 100 %; VENOUS BLOOD BASE EXCESS 8.6 mmol/L; VENOUS BLOOD PH 7.32 (7.30-7.42); WHITE BLOOD COUNT 11.4 10^3/uL (4.0-10.5)
[2017-09-27] MEDS ORDERED: ONDANSETRON HCL INJ/PF 4 MG/2 ML SDV IV ONE (00:11)
[2017-09-27 00:13] LABS: INTERNATIONAL RATION (INR) 0.98; PROTHROMBIN TIME 13.5 SEC (11.4-15.4)
[2017-09-27 00:14] LABS: VENOUS BLOOD PCO2 73.4 mmHg (35-63)
[2017-09-27] MEDS ORDERED: HALOPERIDOL LACTATE INJ 5 MG/1 ML VIAL IV ONE (00:17)
[2017-09-27 00:19] LABS: ALANINE AMINOTRANSFERASE 20 U/L (9-52); ALBUMIN 3.6 g/dL (3.5-5.0); ALKALINE PHOSPHATASE 99 U/L (38-126); ANION GAP 11 (5-19); ASPARTATE AMINO TRANSFERASE 19 U/L (14-36); BILIRUBIN,DIRECT 0.3 mg/dL (0.0-0.4); BILIRUBIN,TOTAL 0.4 mg/dL (0.2-1.3); BLOOD UREA NITROGEN 7 mg/dL (7-20); CALCIUM 9.3 mg/dL (8.4-10.2); CARBON DIOXIDE 33 mmol/L (22-30); CHLORIDE 104 mmol/L (98-107); CREATINE KINASE 94 U/L (30-135); GLUCOSE 137 mg/dL (75-110); POTASSIUM 3.8 mmol/L (3.6-5.0); SODIUM 148.1 mmol/L (137-145); TOTAL PROTEIN 6.3 g/dL (6.3-8.2)
[2017-09-27 00:31] LABS: CREATINE KINASE MB 2.27 ng/mL (<4.55); TROPONIN I 0.018 ng/mL
[2017-09-27] MEDS ORDERED: LORAZEPAM INJ 2 MG/1 ML VIAL IV ONE ×4 (00:40→11:36)
[2017-09-27] MEDS ORDERED: KETAMINE HCL INJ 500 MG/10 ML VIAL IV ONE ×2 (01:33→02:06)
[2017-09-27] MEDS ORDERED: NORMAL SALINE 1000 ML 1,000 ML IV ONE (02:24)
--- NOTE | 2017-09-27 02:55 | RADIOLOGY REPORT (SQ) ---
EXAM DESCRIPTION: CT HEAD WITHOUT IV CONTRAST COMPLETED DATE/TME: 09/27/2017 00:00 CLINICAL HISTORY: 71 years Female, altered mental status COMPARISON: 5.30.16 TECHNIQUE: No contrast. Coronal and sagittal reformat. This exam was performed according to our departmental dose-optimization program, which includes automated exposure control, adjustment of the mA and/or kV according to patient size and/or use of iterative reconstruction technique. FINDINGS: No hemorrhage or infarct. No mass, mass effect, or midline shift. Atherosclerosis Brain and extra-axial structures appear otherwise intact. IMPRESSION: No acute findings.
--- NOTE | 2017-09-27 03:22 | RADIOLOGY REPORT (SQ) ---
EXAM DESCRIPTION: XR CHEST 1 VIEW COMPLETED DATE/TME: 09/26/2017 22:58 CLINICAL HISTORY: 71 years Female, altered mental status COMPARISON: 7.11.18 NUMBER OF VIEWS/TECHNIQUE: 1/AP FINDINGS: Moderate chronic prominent cardiophrenic fat pad pattern, mild chronic interstitial markings, prominent cardiac silhouette, atherosclerosis, lower cervical hardware. IMPRESSION: Mild chronic interstitial lung disease.
[2017-09-27 03:37] LABS: ARTERIAL BLOOD BASE EXCESS 5.1 mmol/L; ARTERIAL BLOOD FIO2 30%; ARTERIAL BLOOD H2CO3 2.02 mmol/L (1.05-1.35); ARTERIAL BLOOD HCO3 33.2 mmol/L (20-26); ARTERIAL BLOOD O2 SATURATION 97.2 % (94-98); ARTERIAL BLOOD PH 7.31 (7.35-7.45); ARTERIAL BLOOD PO2 105.6 mmHg (80-100); ARTERIAL BLOOD TOTAL CO2 35.3 mmol/L (21-25)
[2017-09-27 03:48] LABS: APPEARANCE,URINE CLEAR; BILIRUBIN,URINE NEGATIVE (NEGATIVE); COLOR,URINE YELLOW; GLUCOSE, URINE NEGATIVE (NEGATIVE); KETONES,URINE NEGATIVE (NEGATIVE); LEUKOCYTE ESTERASE,URINE NEGATIVE (NEGATIVE); NITRITE,URINE NEGATIVE (NEGATIVE); PROTEIN,URINE NEGATIVE (NEGATIVE); URINE SPECIFIC GRAVITY 1.005; UROBILINOGEN,URINE NEGATIVE mg/dL (<2.0)
[2017-09-27] MEDS ORDERED: DEXTROSE 40% GEL 15 GM TUBE PO PRN ×2 (05:35)
[2017-09-27] MEDS ORDERED: GLUCAGON,HUMAN RECOMB 1 MG INJ SUBCUT PRN (05:35)
[2017-09-27] MEDS ORDERED: ACETAMINOPHEN 325 MG TABLET PO PRN (05:35)
[2017-09-27] MEDS ORDERED: PROMETHAZINE HCL INJ 25 MG/1 ML VIAL IV PRN (05:35)
[2017-09-27] MEDS ORDERED: DEXTROSE 50%-WATER 25 GM/50 ML DISP.SYRIN IV PRN ×2 (05:35)
[2017-09-27] MEDS ORDERED: MAG HYDROX/AL HYDROX/SIMETH SUSP 30 ML UDCUP PO PRN (05:35)
[2017-09-27] MEDS ORDERED: ZIPRASIDONE MESYLATE INJ/PF 20 MG SDV IM PRN (05:40)
--- NOTE | 2017-09-27 06:09 | PDOC H&P ---
History of Present Illness Admission Date/PCP: 09/27/17 05:02 JULIA SORIANO MD Patient complains of: Agitation History of Present Illness: MARIANA MCCLURE is a 71 year old female with history of dementia, COPD on 2 L oxygen at home at night, comes to the emergency department via EMS with altered mental status. Her daughter is at the bedside and is giving the information. When daughter came from her job about 8 PM, the patient inside the car, daughter had the keys, patient was drenched in sweat did not want to get out of the car and was going from front seat to the back seat, when finally got off the car and daughter locked 8 the patient became agitated and angry. She did not want to get into the house. Daughter tells me that sometimes she is confused, she has hallucinations but never like this. She is mild agitated on and off but no severe. Patient lives alone and usually is independent with her ADLs despite her dementia. In the emergency department VBG with a CO2 of 76, patient was placed on BiPAP, ABG7.3/67/105, her baseline CO2 is 62, 63. Height improvement of the CO2, patient's mental status has not improved. Urinalysis negative. Chest x-ray shows interstitial lung disease. CT of the head negative. In the ED patient has received for her agitation IV Benadryl, Haldol, Ativan, lastly ketamine. EKG with some ST depressions. Patient has not been complaining of anything as per daughter. Past Medical History Cardiac Medical History: Reports: Hyperlipidema Pulmonary Medical History: Reports: Bronchitis, Chronic Obstructive Pulmonary Disease (COPD), Pneumonia - 10 yrs ago last time Neurological Medical History: Denies: Seizures Endocrine Medical History: Reports: Diabetes Mellitus Type 2 GI Medical History: Reports: Gastroesophageal Reflux Disease Musculoskeltal Medical History: Reports: Arthritis - Rheumatoid Psychiatric Medical History: Reports: Depression, Other - diagnosed with early dementia Hematology: Reports: Anemia - when in her 20's Past Surgical History Past Surgical History: Reports: Hysterectomy Social History Smoking Status: Current Every Day Smoker Frequency of Alcohol Use: Social Hx Recreational Drug Use: No Drugs: None Hx Prescription Drug Abuse: No Family History Family History: Hypertension Parental Family History Reviewed: No Children Family History Reviewed: NA Sibling(s) Family History Reviewed.: NA Medication/Allergy Home Medications: Albuterol Sulfate [Albuterol Sulfate 2.5mg/3 mL] 1 vial IH RTQ4HP PRN 08/28/17 Albuterol Sulfate [Proair HFA] 2 puff IH Q4HP PRN 08/28/17 Cholecalciferol (Vitamin D3) [Vitamin D3 400 Unit Tablet] 400 unit PO DAILY 01/05 Duloxetine HCl [Cymbalta] 60 mg PO DAILY 08/28/17 Ergocalciferol (Vitamin D2) [Vitamin D2] 50,000 unit PO RIVERO@1000 08/28/17 Gabapentin [Neurontin 300 mg Capsule] 300 mg PO Q12 08/28/17 Pantoprazole Sodium [Protonix] 40 mg PO Q6AM 08/28/17 Pravastatin Sodium [Pravachol] 40 mg PO DAILY 08/28/17 Prednisone [Deltasone 10 mg Tablet] 10 mg PO DAILY 08/28/17 Risperidone [Risperdal 0.25 mg Tablet] 0.25 mg PO QHS 08/28/17 Sennosides/Docusate Sodium [Senna-S Tablet] 1 each PO DAILYP PRN 08/28/17 Tiotropium Br/Olodaterol HCl [Stiolto Respimat Inhal [place]] 2 puff IH DAILY 01/05 Cyclobenzaprine HCl [Flexeril 10 mg Tablet] 5 mg PO Q8HP PRN tablet 08/30/17 Ferrous Sulfate [Feosol 325 mg Tablet] 325 mg PO NOON tablet 08/30/17 Fluticasone Propionate [Flonase Nasal [place] 50 Mcg/[place] 16 gm] 2 spray NASL Q12 spray.pump 08/30/17 Fluticasone/Salmeterol [Advair 250-50 Diskus 28 dose] 1 inh IH Q12H #1 inhaler 08/30/17 Gabapentin [Neurontin 300 mg Capsule] 300 mg PO Q12 capsule 08/30/17 Ipratropium/Albuterol Sulfate [Duoneb 3 ml Ampul] 3 ml NEB RTQ6HP PRN #0 Nicotine [Nicoderm 14 mg/24 Hr Transdermal Patch] 1 each TD DAILY 30 Days #30 patch.td24 08/30/17 Oxycodone HCl 5 mg PO Q6HP PRN 4 Days #18 capsule 08/30/17 Prednisone [Deltasone 20 mg Tablet] 60 mg PO DAILY #13 tablet 08/30/17 Allergies/Adverse Reactions: No Known Allergies Allergy (Verified 07/18/15 17:08) Review of Systems Review of Systems: Unable to obtain as the patient is confused and on BiPAP Physical Exam Vital Signs: Temp Pulse Resp BP Pulse Ox 109 H 14 135/82 H 100 09/26/17 22:30 09/27/17 05:01 09/27/17 05:01 09/27/17 05:01 Intake & Output 09/25/17 09/26/17 09/27/17 06:59 06:59 06:59 Intake Total 1000 Balance 1000 Additional comments: General appearance: This, alert and cooperative, confused, seems agitated, on distress. Head: Normocephalic Eyes: Keeps her eyes closed. Ears: External auditory canal and tympanic membranes clear, hearing grossly intact. Nose: No nasal discharge. Throat: Not evaluated. Neck: Neck supple, nontender without lymphadenopathy, masses or thyromegaly. Cardiac: Normal S1 and S2. No S3, S4 or murmurs. Rhythm is regular. There is no peripheral edema, cyanosis or pallor. Extremities are warm and well perfused. Capillary refill is less than 2 seconds. No carotid bruits. Lungs: Clear to auscultation and percussion without rales, rhonchi, wheezing. Bilateral diminished breath sounds. Not using accessory muscles. Abdomen: Positive bowel sounds. Soft. Nondistended, nontender. No guarding or rebound. Extremities: No significant deformity or joint abnormality. No edema. Peripheral pulses intact. Neurological: Moves all extremities. Rest unable to evaluate Skin: Skin normal color, texture and turgor with no lesions or eruptions, warm and dry. Psychiatric: unable to obtain Results Laboratory Results: 09/26/17 09/26/17 09/26/17 23:55 23:55 23:55 WBC 11.4 H RBC 3.89 Hgb 10.6 L Hct 33.5 L MCV 86 MCH 27.3 MCHC 31.7 L RDW 17.3 H Plt Count 258 Seg Neutrophils % 77.8 Lymphocytes % 13.3 Monocytes % 5.9 Eosinophils % 2.3 Basophils % 0.7 Absolute Neutrophils 8.9 H Absolute Lymphocytes 1.5 Absolute Monocytes 0.7 Absolute Eosinophils 0.3 Absolute Basophils 0.1 PT 13.5 INR 0.98 Carbonic Acid HCO3/H2CO3 Ratio ABG pH ABG pCO2 ABG pO2 ABG HCO3 ABG Total CO2 ABG O2 Saturation ABG Base Excess VBG pH VBG pCO2 VBG HCO3 VBG Base Excess FiO2 Sodium 148.1 H Potassium 3.8 Chloride 104 Carbon Dioxide 33 H Anion Gap 11 BUN 7 Creatinine 0.96 Est GFR ( Amer) > 60 Est GFR (Non-Af Amer) 57 L Glucose 137 H Calcium 9.3 Total Bilirubin 0.4 Direct Bilirubin 0.3 AST 19 ALT 20 Alkaline Phosphatase 99 Creatine Kinase 94 Total Protein 6.3 Albumin 3.6 Urine Color Urine Appearance Urine pH Ur Specific [place] Urine Glucose (UA) Urine Ketones Urine Blood Urine Nitrite Urine Bilirubin Urine Urobilinogen Ur Leukocyte Esterase Urine WBC (Auto) Urine RBC (Auto) Urine Ascorbic Acid 09/26/17 09/27/17 09/27/17 23:55 02:10 02:56 WBC RBC Hgb Hct MCV MCH MCHC RDW Plt Count Seg Neutrophils % Lymphocytes % Monocytes % Eosinophils % Basophils % Absolute Neutrophils Absolute Lymphocytes Absolute Monocytes Absolute Eosinophils Absolute Basophils PT INR Carbonic Acid 2.02 H HCO3/H2CO3 Ratio 16:1 ABG pH 7.31 L ABG pCO2 67.0 H ABG pO2 105.6 H ABG HCO3 33.2 H ABG Total CO2 35.3 H ABG O2 Saturation 97.2 ABG Base Excess 5.1 VBG pH 7.32 VBG pCO2 73.4 H* VBG HCO3 37.0 H VBG Base Excess 8.6 FiO2 30% Sodium Potassium Chloride Carbon Dioxide Anion Gap BUN Creatinine Est GFR ( Amer) Est GFR (Non-Af Amer) Glucose Calcium Total Bilirubin Direct Bilirubin AST ALT Alkaline Phosphatase Creatine Kinase Total Protein Albumin Urine Color YELLOW Urine Appearance CLEAR Urine pH 8.0 Ur Specific [place] 1.005 Urine Glucose (UA) NEGATIVE Urine Ketones NEGATIVE Urine Blood NEGATIVE Urine Nitrite NEGATIVE Urine Bilirubin NEGATIVE Urine Urobilinogen NEGATIVE Ur Leukocyte Esterase NEGATIVE Urine WBC (Auto) 1 Urine RBC (Auto) 0 Urine Ascorbic Acid NEGATIVE Impressions: Chest X-Ray 09/26/17 22:58 IMPRESSION: Mild chronic interstitial lung disease. Head CT 09/27/17 00:00 IMPRESSION: No acute findings. Assessment & Plan - Diagnosis (1) Acute and chronic respiratory failure with hypercapnia Is this a current diagnosis for this admission?: Yes Plan: Patient comes with a CO2 of 76, after being assaulted of BiPAP her CO2 came down to 65, very close to her baseline, her mental status barely improved, still very agitated. Nebulizer treatments as needed. Continue BiPAP. Telemetry monitoring. (2) Delirium Is this a current diagnosis for this admission?: Yes Plan: Patient with dementia, negative workup in the emergency department, urinalysis negative, chest x-ray negative, CT of the head negative, blood work unremarkable. I believe that this is progressive dementia, probably total worse and a stages. Will Place Ge[facility] IM as needed for agitation. Discharge planning has been consulted as both are good like to place her on a long term facility. (3) Chronic obstructive pulmonary disease Qualifiers: COPD type: emphysema Is this a current diagnosis for this admission?: Yes Plan: More than COPD exacerbation, I feel that her hypercapnia was secondary to do not use her oxygen at home plus multifactorial, however we cannot rule out could be one factor in between all others to her hypercapnia. So far the physical examination with clear lungs. (4) Chronic pain Qualifiers: Chronic pain type: chronic pain syndrome Qualified Code(s): G89.4 - Chronic pain syndrome Is this a current diagnosis for this admission?: Yes Plan: On chronic opioid therapy at home (5) Peripheral neuropathy Is this a current diagnosis for this admission?: Yes Plan: Continue gabapentin - Time Time Spent: 30 to 50 Minutes - Inpatient Certification Medical Necessity: Risk of Complication if Not Cared For in Hospital
[2017-09-27] MEDS: HEPARIN SOD (PORCINE) 5,000 UNIT/ML 1 ML SYRINGE SUBCUT SCH ×3 (06:35→21:18)
--- NOTE | 2017-09-27 09:55 | EKG REPORT ---
SEVERITY:- ABNORMAL ECG - SINUS TACHYCARDIA REPOL ABNRM SUGGESTS ISCHEMIA, DIFFUSE LEADS : Confirmed by: Misty Lucio MD 27-Sep-2017 09:54:51
[2017-09-27] MEDS ORDERED: LORAZEPAM INJ 2 MG/1 ML VIAL IV PRN (13:39)
[2017-09-27] MEDS: RISPERIDONE 1 MG TABLET PO SCH (15:02)
[2017-09-28] MEDS: HEPARIN SOD (PORCINE) 5,000 UNIT/ML 1 ML SYRINGE SUBCUT SCH ×3 (05:56→21:02)
[2017-09-28] MEDS: RISPERIDONE 1 MG TABLET PO SCH (10:14)
--- NOTE | 2017-09-28 11:45 | PDOC PROGRESS REPORT ---
Subjective Progress Note for:: 09/28/17 Subjective:: Patient is asleep, offers no complaints. She has not received any sedatives since about noon on 09/27. Awaiting hospice input. Spouse told me that they are looking into [facility] with hospice Reason For Visit: ON CHRONIC HYPERCAPNIC RESPIRATORY FAILURE Physical Exam Vital Signs: Temp Pulse Resp BP Pulse Ox 97.8 F 100 22 H 122/53 L 100 09/28/17 07:42 09/28/17 07:42 09/28/17 07:42 09/28/17 07:42 09/28/17 07:42 Intake & Output 09/27/17 09/28/17 09/29/17 06:59 06:59 06:59 Intake Total 1000 Balance 1000 Weight 75.3 kg General appearance: PRESENT: no acute distress Head exam: PRESENT: atraumatic, normocephalic Eye exam: PRESENT: conjunctiva pink, PERRLA. ABSENT: scleral icterus Ear exam: PRESENT: normal external ear exam Mouth exam: PRESENT: moist, tongue midline Neck exam: ABSENT: carotid bruit, JVD, lymphadenopathy, thyromegaly Respiratory exam: PRESENT: clear to auscultation mia. ABSENT: rales, rhonchi, wheezes Cardiovascular exam: PRESENT: RRR. ABSENT: diastolic murmur, rubs, systolic murmur Vascular exam: PRESENT: normal capillary refill GI/Abdominal exam: PRESENT: normal bowel sounds, soft. ABSENT: distended, guarding, mass, organolmegaly, rebound, tenderness Rectal exam: PRESENT: deferred Extremities exam: PRESENT: full ROM. ABSENT: calf tenderness, clubbing, pedal edema Neurological exam: PRESENT: altered, motor sensory deficit Skin exam: PRESENT: dry, intact, warm. ABSENT: cyanosis, rash Results Laboratory Results: 09/26/17 23:55 09/26/17 23:55 MCV 86 fl (80-97) 09/26/17 23:55 MCH 27.3 pg (27.0-33.4) 09/26/17 23:55 MCHC 31.7 g/dL (32.0-36.0) L 09/26/17 23:55 RDW 17.3 % (11.5-14.0) H 09/26/17 23:55 Seg Neutrophils % 77.8 % (42-78) 09/26/17 23:55 Lymphocytes % 13.3 % (13-45) 09/26/17 23:55 Monocytes % 5.9 % (3-13) 09/26/17 23:55 Eosinophils % 2.3 % (0-6) 09/26/17 23:55 Basophils % 0.7 % (0-2) 09/26/17 23:55 Absolute Neutrophils 8.9 10^3/uL (1.7-8.2) H 09/26/17 23:55 Absolute Lymphocytes 1.5 10^3/uL (0.5-4.7) 09/26/17 23:55 Absolute Monocytes 0.7 10^3/uL (0.1-1.4) 09/26/17 23:55 Absolute Eosinophils 0.3 10^3/uL (0.0-0.6) 09/26/17 23:55 Absolute Basophils 0.1 10^3/uL (0.0-0.2) 09/26/17 23:55 Carbonic Acid 2.02 mmol/L (1.05-1.35) H 09/27/17 02:10 HCO3/H2CO3 Ratio 16:1 09/27/17 02:10 ABG pH 7.31 (7.35-7.45) L 09/27/17 02:10 ABG pCO2 67.0 mmHg (35-45) H 09/27/17 02:10 ABG pO2 105.6 mmHg (80-100) H 09/27/17 02:10 ABG HCO3 33.2 mmol/L (20-26) H 09/27/17 02:10 ABG O2 Saturation 97.2 % (94-98) 09/27/17 02:10 ABG Base Excess 5.1 mmol/L 09/27/17 02:10 VBG pH 7.32 (7.30-7.42) 09/26/17 23:55 VBG pCO2 73.4 mmHg (35-63) H* 09/26/17 23:55 VBG HCO3 37.0 mmol/L (20-32) H 09/26/17 23:55 VBG Base Excess 8.6 mmol/L 09/26/17 23:55 FiO2 30% 09/27/17 02:10 Chloride 104 mmol/L (98-107) 09/26/17 23:55 Carbon Dioxide 33 mmol/L (22-30) H 09/26/17 23:55 Anion Gap 11 (5-19) 09/26/17 23:55 Est GFR ( Amer) > 60 (>60) 09/26/17 23:55 Est GFR (Non-Af Amer) 57 (>60) L 09/26/17 23:55 Glucose 137 mg/dL (75-110) H 09/26/17 23:55 Lactic Acid 1.7 mmol/L (0.7-2.1) 09/27/17 04:00 Calcium 9.3 mg/dL (8.4-10.2) 09/26/17 23:55 Total Bilirubin 0.4 mg/dL (0.2-1.3) 09/26/17 23:55 AST 19 U/L (14-36) 09/26/17 23:55 ALT 20 U/L (9-52) 09/26/17 23:55 Alkaline Phosphatase 99 U/L (38-126) 09/26/17 23:55 Total Protein 6.3 g/dL (6.3-8.2) 09/26/17 23:55 Albumin 3.6 g/dL (3.5-5.0) 09/26/17 23:55 Urine Color YELLOW 09/27/17 02:56 Urine Appearance CLEAR 09/27/17 02:56 Urine pH 8.0 (5.0-9.0) 09/27/17 02:56 Ur Specific [place] 1.005 09/27/17 02:56 Urine Protein NEGATIVE mg/dL (NEGATIVE) 09/27/17 02:56 Urine Glucose (UA) NEGATIVE mg/dL (NEGATIVE) 09/27/17 02:56 Urine Ketones NEGATIVE mg/dL (NEGATIVE) 09/27/17 02:56 Urine Blood NEGATIVE (NEGATIVE) 09/27/17 02:56 Urine Nitrite NEGATIVE (NEGATIVE) 09/27/17 02:56 Ur Leukocyte Esterase NEGATIVE (NEGATIVE) 09/27/17 02:56 Urine WBC (Auto) 1 /HPF 09/27/17 02:56 Urine RBC (Auto) 0 /HPF 09/27/17 02:56 09/26/17 09/26/17 23:55 23:55 Creatine Kinase 94 CK-MB (CK-2) 2.27 Troponin I 0.018 Impressions: Chest X-Ray 09/26/17 22:58 IMPRESSION: Mild chronic interstitial lung disease. Head CT 09/27/17 00:00 IMPRESSION: No acute findings. Assessment & Plan - Diagnosis (1) Acute and chronic respiratory failure with hypercapnia Is this a current diagnosis for this admission?: Yes (2) Dehydration Is this a current diagnosis for this admission?: Yes (3) Altered mental status Is this a current diagnosis for this admission?: Yes - Time Time Spent with patient: 15-24 minutes Medications reviewed and adjusted accordingly: Yes Anticipated discharge: Hospice - Inpatient Certification Based on my medical assessment, after consideration of the patient's comorbidities, presenting symptoms, or acuity I expect that the services needed warrant INPATIENT care.: Yes Medical Necessity: Need For IV Fluids
[2017-09-28] MEDS: DEXTROSE 5%-1/2 NORMAL SALINE 1,000 ML IV PRN ×2 (11:46→21:01)
[2017-09-28] MEDS: IPRATROPIUM/ALBUTEROL 0.5-2.5 MG/3 ML AMPUL NEB PRN (14:52)
[2017-09-29] MEDS: HEPARIN SOD (PORCINE) 5,000 UNIT/ML 1 ML SYRINGE SUBCUT SCH ×3 (05:23→21:17)
[2017-09-29 06:55] LABS: ABSOLUTE BASOPHILS # (AUTO) 0.1 10^3/uL (0.0-0.2); ABSOLUTE EOSINOPHILS # (AUTO) 0.5 10^3/uL (0.0-0.6); ABSOLUTE LYMPHOCYTES (AUTO) 1.2 10^3/uL (0.5-4.7); ABSOLUTE MONOCYTES (AUTO) 0.5 10^3/uL (0.1-1.4); EOSINOPHILS % (AUTO) 4.9 % (0-6); HEMATOCRIT 35.1 % (36.0-47.0); HEMOGLOBIN 11.5 g/dL (12.0-15.5); LYMPHOCYTES % (AUTO) 12.9 % (13-45); MEAN CORPUSCULAR HGB CONC 32.9 g/dL (32.0-36.0); MEAN CORPUSCULAR VOLUME 85 fl (80-97); MONOCYTES % (AUTO) 4.9 % (3-13); PLATELET COUNT 205 10^3/uL (150-450); RED BLOOD COUNT 4.11 10^6/uL (3.72-5.28); RED CELL DISTRIBUTION WIDTH 16.9 % (11.5-14.0); SEGMENTED NEUTROPHILS % (AUTO) 76.3 % (42-78); TOTAL CELLS COUNTED % (AUTO) 100 %; WHITE BLOOD COUNT 9.2 10^3/uL (4.0-10.5)
[2017-09-29 07:36] LABS: ANION GAP 10 (5-19); BLOOD UREA NITROGEN 6 mg/dL (7-20); CARBON DIOXIDE 28 mmol/L (22-30); CHLORIDE 105 mmol/L (98-107); GLUCOSE 116 mg/dL (75-110); POTASSIUM 3.4 mmol/L (3.6-5.0); SODIUM 143.4 mmol/L (137-145)
[2017-09-29] MEDS: DEXTROSE 5%-1/2 NORMAL SALINE 1,000 ML IV PRN ×2 (08:08→18:35)
[2017-09-29] MEDS: RISPERIDONE 1 MG TABLET PO SCH (11:14)
[2017-09-29] MEDS: IPRATROPIUM/ALBUTEROL 0.5-2.5 MG/3 ML AMPUL NEB PRN ×2 (11:56→16:22)
--- NOTE | 2017-09-29 14:23 | PDOC PROGRESS REPORT ---
Subjective Subjective:: Patient is awake and alert although still somewhat confused. She does not remember the events prompting her admission. She denies any chest pain nausea vomiting Reason For Visit: ON CHRONIC HYPERCAPNIC RESPIRATORY FAILURE Physical Exam Vital Signs: Temp Pulse Resp BP Pulse Ox 98.7 F 108 H 16 162/85 H 96 09/29/17 11:48 09/29/17 11:56 09/29/17 11:56 09/29/17 11:48 09/29/17 11:56 Intake & Output 09/28/17 09/29/17 09/30/17 06:59 06:59 06:59 Intake Total 1280 1000 Output Total 0 Balance 1280 1000 Weight 75.3 kg 76.1 kg General appearance: PRESENT: no acute distress, well-developed, well-nourished Head exam: PRESENT: atraumatic, normocephalic Eye exam: PRESENT: conjunctiva pink, EOMI, PERRLA. ABSENT: scleral icterus Ear exam: PRESENT: normal external ear exam Mouth exam: PRESENT: moist, tongue midline Neck exam: ABSENT: carotid bruit, JVD, lymphadenopathy, thyromegaly Respiratory exam: PRESENT: clear to auscultation mia. ABSENT: rales, rhonchi, wheezes Cardiovascular exam: PRESENT: RRR. ABSENT: diastolic murmur, rubs, systolic murmur Pulses: PRESENT: normal dorsalis pedis pul Vascular exam: PRESENT: normal capillary refill GI/Abdominal exam: PRESENT: normal bowel sounds, soft. ABSENT: distended, guarding, mass, organolmegaly, rebound, tenderness Rectal exam: PRESENT: deferred Extremities exam: PRESENT: full ROM. ABSENT: calf tenderness, clubbing, pedal edema Neurological exam: PRESENT: alert, awake, oriented to person, oriented to place , CN II-XII grossly intact. ABSENT: motor sensory deficit Psychiatric exam: PRESENT: appropriate affect, normal mood. ABSENT: homicidal ideation, suicidal ideation Skin exam: PRESENT: dry, intact, warm. ABSENT: cyanosis, rash Results Laboratory Results: 09/29/17 05:44 09/29/17 05:44 09/29/17 09/29/17 05:44 05:44 WBC 9.2 RBC 4.11 Hgb 11.5 L Hct 35.1 L MCV 85 MCH 28.0 MCHC 32.9 RDW 16.9 H Plt Count 205 Seg Neutrophils % 76.3 Lymphocytes % 12.9 L Monocytes % 4.9 Eosinophils % 4.9 Basophils % 1.0 Absolute Neutrophils 7.0 Absolute Lymphocytes 1.2 Absolute Monocytes 0.5 Absolute Eosinophils 0.5 Absolute Basophils 0.1 Sodium 143.4 Potassium 3.4 L Chloride 105 Carbon Dioxide 28 Anion Gap 10 BUN 6 L Creatinine 0.65 Est GFR ( Amer) > 60 Est GFR (Non-Af Amer) > 60 Glucose 116 H Calcium 9.0 Impressions: Chest X-Ray 09/26/17 22:58 IMPRESSION: Mild chronic interstitial lung disease. Head CT 09/27/17 00:00 IMPRESSION: No acute findings. Assessment & Plan - Diagnosis (1) Acute and chronic respiratory failure with hypercapnia Is this a current diagnosis for this admission?: Yes (2) Dehydration Is this a current diagnosis for this admission?: Yes (3) Altered mental status Is this a current diagnosis for this admission?: Yes - Time Time Spent with patient: 15-24 minutes Medications reviewed and adjusted accordingly: Yes Anticipated discharge: Home with Homehealth Within: within 48 hours - Inpatient Certification Based on my medical assessment, after consideration of the patient's comorbidities, presenting symptoms, or acuity I expect that the services needed warrant INPATIENT care.: Yes Medical Necessity: Need For IV Fluids - Plan Summary Plan Summary: Patient appears to be improving clinically. She is now more awake and alert. It appears family is thinking of assisted living however will discuss with case supervisor tomorrow and see what most appropriate for her.
[2017-09-29] MEDS ORDERED: POTASSIUM CHLORIDE 10 MEQ CAPSULE.ER PO ONE (15:00)
[2017-09-30] MEDS: HEPARIN SOD (PORCINE) 5,000 UNIT/ML 1 ML SYRINGE SUBCUT SCH ×2 (05:18→15:21)
[2017-09-30] MEDS: DEXTROSE 5%-1/2 NORMAL SALINE 1,000 ML IV PRN (05:23)
[2017-09-30] MEDS: RISPERIDONE 1 MG TABLET PO SCH (09:26)
[2017-09-30] MEDS: IPRATROPIUM/ALBUTEROL 0.5-2.5 MG/3 ML AMPUL NEB PRN (12:51)
--- NOTE | 2017-09-30 13:34 | PDOC DISCHARGE SUMMARY ---
General - Admit/Disc Date/PCP Admission Date/Primary Care Provider: 09/27/17 05:02 JULIA SORIANO MD Discharge Date: 09/30/17 - Discharge Diagnosis (1) Acute and chronic respiratory failure with hypercapnia Is this a current diagnosis for this admission?: Yes (2) Dehydration Is this a current diagnosis for this admission?: Yes (3) Altered mental status Is this a current diagnosis for this admission?: Yes (4) Delirium Is this a current diagnosis for this admission?: Yes (5) Chronic obstructive pulmonary disease Is this a current diagnosis for this admission?: Yes - Additional Information Resuscitation Status: Full Code Discharge Diet: Regular Discharge Activity: Activity As Tolerated Prescriptions: Morphine Sulfate [Morphine Ir 15 mg Tablet] 15 mg PO Q12 #30 tablet Oxycodone HCl 10 mg PO Q6 #20 tablet Home Medications: Albuterol Sulfate [Albuterol Sulfate 2.5mg/3 mL] 2.5 mg PO Q4HP PRN 09/27/17 Albuterol Sulfate [Proair HFA Inhalation Aerosol 8.5 gm MDI] 1 puff IH Q4HP PRN 09/27/17 Duloxetine HCl [Cymbalta] 60 mg PO DAILY 09/27/17 Fluticasone Propionate [Flonase Nasal [place] 50 Mcg/[place] 16 gm] 2 spray NASL Q12 09/27/17 Gabapentin [Neurontin 300 mg Capsule] 300 mg PO Q12 09/27/17 Ipratropium/Albuterol Sulfate [Duoneb 3 ml Ampul] 1 vial NEB RTQIDP PRN Ipratropium/Albuterol Sulfate [Duoneb 3 ml Ampul] 3 ml NEB RTQ6HP PRN 09/27/17 Nicotine [Nicoderm 14 mg/24 Hr Transdermal Patch] 1 patch TD DAILY 09/27/17 Pantoprazole Sodium [Protonix] 40 mg PO DAILY 09/27/17 Pravastatin Sodium [Pravachol] 40 mg PO QPM 09/27/17 Prednisone [Deltasone 5 mg Tablet] 5 mg PO DAILY 09/27/17 Sennosides [Senokot] 34.4 mg PO DAILY 09/27/17 Morphine Sulfate [Morphine Ir 15 mg Tablet] 15 mg PO Q12 #30 tablet 09/30/17 Oxycodone HCl 10 mg PO Q6 #20 tablet 09/30/17 Risperidone [Risperdal 1 mg Tablet] 1 mg PO DAILY tablet 09/30/17 History of Present Illness History of Present Illness: MARIANA MCCLURE is a 71 year old female with history of dementia, COPD on 2 L oxygen at home at night, comes to the emergency department via EMS with altered mental status. Her daughter is at the bedside and is giving the information. When daughter came from her job about 8 PM, the patient inside the car, daughter had the keys, patient was drenched in sweat did not want to get out of the car and was going from front seat to the back seat, when finally got off the car and daughter locked 8 the patient became agitated and angry. She did not want to get into the house. Daughter tells me that sometimes she is confused, she has hallucinations but never like this. She is mild agitated on and off but no severe. Patient lives alone and usually is independent with her ADLs despite her dementia. In the emergency department VBG with a CO2 of 76, patient was placed on BiPAP, ABG7.3/67/105, her baseline CO2 is 62, 63. Height improvement of the CO2, patient's mental status has not improved. Urinalysis negative. Chest x-ray shows interstitial lung disease. CT of the head negative. In the ED patient has received for her agitation IV Benadryl, Haldol, Ativan, lastly ketamine. EKG with some ST depressions. Patient has not been complaining of anything as per daughter. Hospital Course Hospital Course: This patient was admitted with confusion. She mildly elevated agitated and she was found to be hypercapnic with a PCO2 of about 73. She does have chronic respiratory failure. Patient was placed on BiPAP. Her mental status actually improved a slowly. She received antipsychotics due to agitation. She has remained fairly calm over the last 48 hours and she appears to be back at her baseline mental status. Her confusion has cleared. Patient was apparently on hospice care at home however unclear what the family want to do now so this will need review. [facility]. Aside from the encephalopathy and hypercapnia there really was no other acute medical illness identified. Patient does have underlying chronic respiratory failure as well as chronic pain syndrome for which she received narcotics. COPD Exacerbation was ruled out Physical Exam Vital Signs: Temp Pulse Resp BP Pulse Ox 98.1 F 79 16 134/73 H 96 09/30/17 03:32 09/30/17 12:51 09/30/17 12:51 09/30/17 03:32 09/30/17 12:51 Intake & Output 09/29/17 09/30/17 10/01/17 06:59 06:59 06:59 Intake Total 1280 3275 Output Total 0 Balance 1280 3275 Weight 76.1 kg 76.4 kg General appearance: PRESENT: no acute distress, well-developed, well-nourished Head exam: PRESENT: atraumatic, normocephalic Eye exam: PRESENT: conjunctiva pink, EOMI, PERRLA. ABSENT: scleral icterus Ear exam: PRESENT: normal external ear exam Mouth exam: PRESENT: moist, tongue midline Neck exam: ABSENT: carotid bruit, JVD, lymphadenopathy, thyromegaly Respiratory exam: PRESENT: decreased breath sounds. ABSENT: rales, rhonchi, wheezes Cardiovascular exam: PRESENT: RRR. ABSENT: diastolic murmur, rubs, systolic murmur Pulses: PRESENT: normal dorsalis pedis pul Vascular exam: PRESENT: normal capillary refill GI/Abdominal exam: PRESENT: normal bowel sounds, soft. ABSENT: distended, guarding, mass, organolmegaly, rebound, tenderness Rectal exam: PRESENT: deferred Extremities exam: PRESENT: full ROM. ABSENT: calf tenderness, clubbing, pedal edema Neurological exam: PRESENT: alert, awake, oriented to place, oriented to situation, CN II-XII grossly intact. ABSENT: motor sensory deficit Psychiatric exam: PRESENT: appropriate affect, normal mood. ABSENT: homicidal ideation, suicidal ideation Skin exam: PRESENT: dry, intact, warm. ABSENT: cyanosis, rash Results Laboratory Results: 09/29/17 05:44 09/29/17 05:44 Impressions: Chest X-Ray 09/26/17 22:58 IMPRESSION: Mild chronic interstitial lung disease. Head CT 09/27/17 00:00 IMPRESSION: No acute findings. Qualifiers - * PATIENT BEING DISCHARGED WITH ANY OF THE FOLLOWING DIAGNOSIS: No Plan Time Spent: Greater than 30 Minutes
[2017-09-30 16:24] VITALS: BP 145/76
== END 2017-09-30 17:34 | DRG 189 ==
LOC: ER 22:13 → EH 09-27 05:02 → 3W 09-27 12:13
PROVIDERS: ADMIT Internal Medicine; ATTEND Internal Medicine
PROC: 5A09457 Assistance with Respiratory Ventilation, 24-96 Consecutive Hours, Continuous Positive Airway Pressure (ICD-10-PCS; principal; 2017-09-27)
PROC: 3E0F73Z Introduction of Anti-inflammatory into Respiratory Tract, Via Natural or Artificial Opening (ICD-10-PCS; 2017-09-27)
DX: J96.22 Acute and chronic respiratory failure with hypercapnia (principal); F03.91 Unspecified dementia, unspecified severity, with behavioral disturbance; F05 Delirium due to known physiological condition; E86.0 Dehydration; Z60.2 Problems related to living alone; G89.4 Chronic pain syndrome; E78.00 Pure hypercholesterolemia, unspecified; E11.9 Type 2 diabetes mellitus without complications; K21.9 Gastro-esophageal reflux disease without esophagitis; M06.9 Rheumatoid arthritis, unspecified; F32.9 Major depressive disorder, single episode, unspecified; D64.9 Anemia, unspecified; F17.210 Nicotine dependence, cigarettes, uncomplicated; J43.9 Emphysema, unspecified; G62.9 Polyneuropathy, unspecified; R29.810 Facial weakness; Z99.81 Dependence on supplemental oxygen; Z79.899 Other long term (current) drug therapy; Z90.710 Acquired absence of both cervix and uterus; Z79.52 Long term (current) use of systemic steroids; Z91.19 Patient's noncompliance with other medical treatment and regimen; Z82.49 Family history of ischemic heart disease and other diseases of the circulatory system
CPT/HCPCS: 36415; 36600; 51701; 70450; 71045; 80048; 80053; 81001; 82550; 82553; 82803; 82962; 83605; 84484; 85025; 85610; 87040; 87086; 93005; 93010; 94640; 94660; 96361; 96374; 96375; 96376; 99291; J1200; J1630; J1644; J2060; J3486; J3490; J7030; J7620

== ENCOUNTER 2019-01-06 13:04 | Emergency (ER) | payer MEDICARE, OTHER ==
--- NOTE | 2019-01-06 13:18 | ER Document Report ---
ED Medical Screen (RME) - General Chief Complaint: Flank Pain Stated Complaint: FLANK PAIN,BACK PAIN Time Seen by Provider: 01/06/19 13:11 Primary Care Provider: JAMES RICO DO [Primary Care Provider] - Follow up as needed Mode of Arrival: Wheelchair Information source: Patient Notes: 73-year-old female with history of COPD still smoking presents with left upper back pain for a month and left side pain. Denies fever vomiting diarrhea. Reports she was on hospice for a long time due to her COPD. She was instructed that she was going to live for another year has been a year now. Denies cough. Respiratory rate even unlabored I have greeted and performed a rapid initial assessment of this patient. A comprehensive ED assessment and evaluation of the patient, analysis of test results and completion of the medical decision making process will be conducted by additional ED providers. Dictation of this chart was performed using voice recognition software; therefore, there may be some unintended grammatical errors. TRAVEL OUTSIDE OF THE [place] IN LAST 30 DAYS: No - Related Data Allergies/Adverse Reactions: No Known Allergies Allergy (Verified 01/06/19 13:09) Past Medical History - Social History Chew tobacco use (# tins/day): No Frequency of alcohol use: None Drug Abuse: None - Past Medical History Cardiac Medical History: Reports: Hx Hypercholesterolemia Pulmonary Medical History: Reports: Hx Bronchitis, Hx COPD, Hx Pneumonia - 10 yrs ago last time Neurological Medical History: Denies: Hx Cerebrovascular Accident, Hx Seizures Endocrine Medical History: Reports: Hx Diabetes Mellitus Type 2 Renal/ Medical History: Denies: Hx Peritoneal Dialysis GI Medical History: Reports: Hx Gastroesophageal Reflux Disease Musculoskeltal Medical History: Reports Hx Arthritis - Rheumatoid Psychiatric Medical History: Reports: Hx Depression Past Surgical History: Reports: Hx Hysterectomy - Immunizations Hx Diphtheria, Pertussis, Tetanus Vaccination: No Physical Exam - Vital signs Vitals: Temp Pulse Resp BP Pulse Ox 98.1 F 107 H 18 148/80 H 95 01/06/19 13:08 01/06/19 13:08 01/06/19 13:08 01/06/19 13:08 01/06/19 13:08 Course - Vital Signs Vital signs: Temp Pulse Resp BP Pulse Ox 98.1 F 107 H 18 148/80 H 95 01/06/19 13:08 01/06/19 13:08 01/06/19 13:08 01/06/19 13:08 01/06/19 13:08 Doctor's Discharge - Discharge Referrals: JAMES RICO, DO [Primary Care Provider] - Follow up as needed
--- NOTE | 2019-01-06 13:46 | RADIOLOGY REPORT (SQ) ---
EXAM DESCRIPTION: CHEST 2 VIEWS COMPLETED DATE/TIME: 01/06/2019 1:35 pm REASON FOR STUDY: left upper back pain COMPARISON: 08/17/2014 EXAM PARAMETERS: NUMBER OF VIEWS: two views TECHNIQUE: Digital Frontal and Lateral radiographic views of the chest acquired. RADIATION DOSE: NA LIMITATIONS: none FINDINGS: LUNGS AND PLEURA: Patchy lingular opacities with obscuration of the left heart border. No large effusion. No pneumothorax. MEDIASTINUM AND HILAR STRUCTURES: No masses or contour abnormalities. HEART AND VASCULAR STRUCTURES: Normal heart size. Tortuous atherosclerotic thoracic aorta. BONES: Cervical anterior posterior fusion hardware, partially evaluated. Exaggerated thoracic kyphos is with likely anterior wedging of the lower thoracic vertebral body although evaluation limited seco ndary to decreased osseous mineralization. HARDWARE: Cervical fusion hardware as above. OTHER: No other significant finding. IMPRESSION: 1. Ill-defined lingular opacity possibly atelectasis or infection. 2. Exaggerated thoracic kyphosis with likely anterior wedging of the lower thoracic vertebral body a lthough evaluation limited secondary to decreased mineralization. If concern for acute compression f racture consider MRI or CT. TECHNICAL DOCUMENTATION: JOB ID: [id number] [employer]- All Rights Reserved Reading location - IP/workstation name: [email or web address]
[2019-01-06 14:08] LABS: ABSOLUTE BASOPHILS # (AUTO) 0.1 10^3/uL (0.0-0.2); ABSOLUTE EOSINOPHILS # (AUTO) 0.1 10^3/uL (0.0-0.6); ABSOLUTE LYMPHOCYTES (AUTO) 2.7 10^3/uL (0.5-4.7); ABSOLUTE MONOCYTES (AUTO) 0.7 10^3/uL (0.1-1.4); ABSOLUTE NEUT (AUTO) 9.4 10^3/uL (1.7-8.2); BASOPHILS % (AUTO) 0.7 % (0-2); HEMATOCRIT 37.8 % (36.0-47.0); HEMOGLOBIN 12.3 g/dL (12.0-15.5); LYMPHOCYTES % (AUTO) 20.9 % (13-45); MEAN CORPUSCULAR HEMOGLOBIN 27.1 pg (27.0-33.4); MEAN CORPUSCULAR HGB CONC 32.6 g/dL (32.0-36.0); MEAN CORPUSCULAR VOLUME 83 fl (80-97); MONOCYTES % (AUTO) 5.7 % (3-13); PLATELET COUNT 343 10^3/uL (150-450); RED BLOOD COUNT 4.54 10^6/uL (3.72-5.28); RED CELL DISTRIBUTION WIDTH 17.2 % (11.5-14.0); SEGMENTED NEUTROPHILS % (AUTO) 71.7 % (42-78); TOTAL CELLS COUNTED % (AUTO) 100 %; WHITE BLOOD COUNT 13.1 10^3/uL (4.0-10.5)
[2019-01-06 14:12] LABS: APPEARANCE,URINE CLEAR; BILIRUBIN,URINE NEGATIVE (NEGATIVE); COLOR,URINE STRAW; GLUCOSE, URINE NEGATIVE (NEGATIVE); KETONES,URINE NEGATIVE (NEGATIVE); LEUKOCYTE ESTERASE,URINE NEGATIVE (NEGATIVE); NITRITE,URINE NEGATIVE (NEGATIVE); PROTEIN,URINE NEGATIVE (NEGATIVE); URINE SPECIFIC GRAVITY 1.002; UROBILINOGEN,URINE NEGATIVE mg/dL (<2.0)
[2019-01-06] MEDS ORDERED: IPRATROPIUM/ALBUTEROL 0.5-2.5 MG/3 ML AMPUL NEB ONE (14:12)
--- NOTE | 2019-01-06 14:12 | ER Document Report ---
ED General - General Chief Complaint: Flank Pain Stated Complaint: FLANK PAIN,BACK PAIN Time Seen by Provider: 01/06/19 13:11 Primary Care Provider: JAMES RICO DO [NO LOCAL MD] - Follow up as needed Mode of Arrival: Wheelchair TRAVEL OUTSIDE OF THE [place] IN LAST 30 DAYS: No - HPI Notes: Patient is a 73-year-old female with a history of COPD with oxygen use at night, chronic back pain with previous surgery, arthritis, mental health disorder who p resents with daughter complaining of left lower back pain that is been present for a month. Patient states that the pain is worse with movement and does not radiate. She has been able to eat and drink without difficulty. She is urinating normally and having normal bowel movements. Patient states that she does have a chronic cough with some mild production, but otherwise baseline. Denies drug allergies. No other concerns or complaints. She does take Tylenol, Decadron, and Mobic daily. Denies any headache, fever, neck pain, URI, sore throat, chest pain, palpitations, syncope, abdominal pain, nausea/vomiting/diarrhea, urinary retention, dysuria, hematuria, loss of control of bowel or bladder, numbness/tingling, saddle anesthesia, muscle paralysis/weakness, or rash. - Related Data Allergies/Adverse Reactions: No Known Allergies Allergy (Verified 01/06/19 13:09) Past Medical History - General Information source: Patient - Social History Smoking Status: Current Every Day Smoker Chew tobacco use (# tins/day): No Frequency of alcohol use: None Drug Abuse: None Family History: Hypertension Patient has suicidal ideation: No Patient has homicidal ideation: No - Past Medical History Cardiac Medical History: Reports: Hx Hypercholesterolemia Pulmonary Medical History: Reports: Hx Bronchitis, Hx COPD, Hx Pneumonia - 10 yrs ago last time Neurological Medical History: Denies: Hx Cerebrovascular Accident, Hx Seizures Endocrine Medical History: Reports: Hx Diabetes Mellitus Type 2 Renal/ Medical History: Denies: Hx Peritoneal Dialysis GI Medical History: Reports: Hx Gastroesophageal Reflux Disease Musculoskeletal Medical History: Reports Hx Arthritis - Rheumatoid Psychiatric Medical History: Reports: Hx Depression Past Surgical History: Reports: Hx Hysterectomy - Immunizations Hx Diphtheria, Pertussis, Tetanus Vaccination: No Review of Systems - Review of Systems -: Yes All other systems reviewed and negative Physical Exam - Vital signs Vitals: Temp Pulse Resp BP Pulse Ox 98.1 F 107 H 18 148/80 H 95 01/06/19 13:08 01/06/19 13:08 01/06/19 13:08 01/06/19 13:08 01/06/19 13:08 - Notes Notes: PHYSICAL EXAMINATION: GENERAL: Well-appearing, well-nourished and in no acute distress. LUNGS: scant b/l wheezes primarily on expirations. No retractions. No pursed lip breathing. HEART: Regular rate and rhythm without murmurs, rubs, gallops. ABDOMEN: Soft, nontender, nondistended abdomen. No guarding, no rebound. Normal bowel sounds present. + mild left CVA tenderness. Musculoskeletal: LE's b/l: FROM to passive/active. Strength 5+/5. No deficits noted. No bony tenderness of extremities. Back: + noticeable kyphosis of thoracic area. FROM to passive/active. Strength 5+/5. No vertebral point tenderness, stepoffs, or deformities. No other bony tenderness, erythema, swelling, or ecchymosis. SLR negative b/l. + mild tenderness to the left L-paraspinal mm. Mild spasming. No SI jt tenderness. No foot drop Extremities: No cyanosis, clubbing, or edema b/l. Peripheral pulses 2+. Capillary refill less than 2 seconds. NEUROLOGICAL: Normal speech, normal gait with aide of SPC. Normal sensory, motor exams. Reflexes 2+ b/l. PSYCH: Normal mood, normal affect. SKIN: Warm, Dry, normal turgor, no rashes or lesions noted. Course - Re-evaluation Re-evalutation: 01/06/19 14:37 Patient is an afebrile, well-hydrated, 73-year-old female who presents to the ED with acute on chronic low back pain and possible pneumonia left lung. Vitals are acceptable. PE is otherwise unremarkable for any focal neurological deficits. Patient was given Toradol and 1 breathing treatment (although she states is baseline but noted some mild wheezing). Abd is soft and nontender. She has no significant tachycardia, tachypnea, or hypoxia. She is nontoxic- appearing and is tolerating p.o. without difficulties. There are no signs of infection. No other red flag symptoms noted. No other labs or imaging warranted at this time based on H&P. Low suspicion for any meningitis, fracture, expanding/ruptured AAA, cauda equina syndrome, epidural mass lesion/abscess, herniated disc causing severe spinal stenosis, or other systemic infection at this time. Patient is aware that this condition can change from initial presentation and that she needs monitor symptoms closely for any acute changes. I will send her home with a prescription for lidoderm patch. She is already on a daily steroid, tylenol, and mobic (pt will hold mobic today). I will send her home with doxycycline as well. Conservative measures otherwise for symptoms. Recheck with your PCM in 3-5 days. Consider consult with orthopedic/physical therapy. Return to the ED with any worsening/concerning symptoms otherwise as reviewed discharge. Patient is in agreement. - Vital Signs Vital signs: Temp Pulse Resp BP Pulse Ox 98.1 F 107 H 18 148/80 H 95 01/06/19 13:08 01/06/19 13:08 01/06/19 13:08 01/06/19 13:08 01/06/19 13:08 - Laboratory Result Diagrams: 01/06/19 13:25 01/06/19 13:25 Laboratory results interpreted by me: 01/06/19 01/06/19 13:25 13:25 WBC 13.1 H RDW 17.2 H Absolute Neuts (auto) 9.4 H Chloride 97 L Carbon Dioxide 33 H Discharge - Discharge Clinical Impression: Acute exacerbation of chronic low back pain Pneumonia involving left lung Qualifiers: Pneumonia type: due to unspecified organism Lung location: lower lobe of lung Qualified Code(s): J18.9 - Pneumonia, unspecified organism Condition: Stable Disposition: HOME, SELF-CARE Additional Instructions: Rest, Ice Tylenol/ibuprofen as needed Light stretches daily Strength exercises as able Moist heat and massage may help F/u with your PCP in 3-5 days for a recheck Consider consult(s) with Orthopedics/physical therapy for ongoing/worsening symptoms Return to the ED with any worsening symptoms and/or development of fever, headache, chest pain, palpitations, syncope, shortness of breath, trouble breathing, abdominal pain, n/v/d, blood in stool/urine, loss of control of bowel/bladder, urinary retention, muscle weakness/paralysis, saddle anesthesia, numbness/tingling, or other worsening symptoms that are concerning to you. Prescriptions: Doxycycline Hyclate 100 mg PO BID #20 capsule Lidocaine [Lidoderm 5% (700 mg) Transdermal Patch] 1 patch TP DAILY #10 adh..patch Forms: Elevated Blood Pressure, Smoking Cessation Education Referrals: JAMES RICO DO [NO LOCAL MD] - 01/09/19 DANY FELIX JR, DO [ACTIVE PROVISIONAL STAFF] - Follow up as needed
[2019-01-06 14:25] LABS: ALBUMIN 4.5 g/dL (3.5-5.0); ALKALINE PHOSPHATASE 74 U/L (38-126); ANION GAP 10 (5-19); ASPARTATE AMINO TRANSFERASE 20 U/L (14-36); BILIRUBIN,DIRECT 0.2 mg/dL (0.0-0.4); BILIRUBIN,TOTAL 0.3 mg/dL (0.2-1.3); BLOOD UREA NITROGEN 11 mg/dL (7-20); CALCIUM 10.1 mg/dL (8.4-10.2); CARBON DIOXIDE 33 mmol/L (22-30); CHLORIDE 97 mmol/L (98-107); GLUCOSE 87 mg/dL (75-110); POTASSIUM 4.2 mmol/L (3.6-5.0); TOTAL PROTEIN 7.6 g/dL (6.3-8.2)
[2019-01-06] MEDS ORDERED: KETOROLAC TROMETHAMINE 60 MG/2 ML SDV IM ONE (14:30)
[2019-01-06 15:05] VITALS: BP 136/82
== END 2019-01-06 15:05 | disposition home or self-care (01) ==
LOC: ER 13:04
DX: G89.29 Other chronic pain (principal); M54.5 Low back pain; J18.9 Pneumonia, unspecified organism; J44.0 Chronic obstructive pulmonary disease with (acute) lower respiratory infection; Z99.81 Dependence on supplemental oxygen; M40.204 Unspecified kyphosis, thoracic region; R25.2 Cramp and spasm; R05 Cough; E11.9 Type 2 diabetes mellitus without complications; M06.9 Rheumatoid arthritis, unspecified; Z79.899 Other long term (current) drug therapy; Z79.1 Long term (current) use of non-steroidal anti-inflammatories (NSAID)
CPT/HCPCS: 36415; 85025; 80053; 81001; 71046; J1885; A9270; 94640; 96372; 99283; J7620

== ENCOUNTER 2019-01-15 08:49 | Emergency (ER) | payer MEDICARE ==
[2019-01-15 09:25] LABS: ABSOLUTE BASOPHILS # (AUTO) 0.1 10^3/uL (0.0-0.2); ABSOLUTE EOSINOPHILS # (AUTO) 0.2 10^3/uL (0.0-0.6); ABSOLUTE LYMPHOCYTES (AUTO) 1.5 10^3/uL (0.5-4.7); ABSOLUTE MONOCYTES (AUTO) 0.8 10^3/uL (0.1-1.4); BASOPHILS % (AUTO) 0.7 % (0-2); EOSINOPHILS % (AUTO) 1.5 % (0-6); HEMATOCRIT 31.4 % (36.0-47.0); HEMOGLOBIN 10.2 g/dL (12.0-15.5); MEAN CORPUSCULAR HEMOGLOBIN 27.5 pg (27.0-33.4); MEAN CORPUSCULAR HGB CONC 32.5 g/dL (32.0-36.0); MEAN CORPUSCULAR VOLUME 85 fl (80-97); MONOCYTES % (AUTO) 7.8 % (3-13); PLATELET COUNT 250 10^3/uL (150-450); RED BLOOD COUNT 3.72 10^6/uL (3.72-5.28); RED CELL DISTRIBUTION WIDTH 16.7 % (11.5-14.0); TOTAL CELLS COUNTED % (AUTO) 100 %; WHITE BLOOD COUNT 10.6 10^3/uL (4.0-10.5)
--- NOTE | 2019-01-15 09:26 | ER Document Report ---
ED Medical Screen (RME) - General Chief Complaint: Abdominal Pain Stated Complaint: ABDOMINAL PAIN Time Seen by Provider: 01/15/19 09:20 Mode of Arrival: Medic Information source: Parent Notes: 73-year-old female presented to ED for constipation. She states she was seen in here last week for constipation and was discharged home. She states she is having pain in her abdomen sides and back. She states she did fall last night but it does not have any injuries from her fall patient is alert oriented respirations regular and unlabored speaking in full sentences. She does have tenderness to the left abdomen and flank. No bruising noted at this time. Bowel sounds are present throughout. Abdomen is soft I have greeted and performed a rapid initial assessment of this patient. A c omprehensive ED assessment and evaluation of the patient, analysis of test results and completion of medical decision making process will be conducted by an additional ED providers. TRAVEL OUTSIDE OF THE [place] IN LAST 30 DAYS: No - Related Data Allergies/Adverse Reactions: No Known Allergies Allergy (Verified 01/06/19 13:09) Past Medical History - Past Medical History Cardiac Medical History: Reports: Hx Hypercholesterolemia Pulmonary Medical History: Reports: Hx Bronchitis, Hx COPD, Hx Pneumonia - 10 yrs ago last time Neurological Medical History: Denies: Hx Cerebrovascular Accident, Hx Seizures Endocrine Medical History: Reports: Hx Diabetes Mellitus Type 2 Renal/ Medical History: Denies: Hx Peritoneal Dialysis GI Medical History: Reports: Hx Gastroesophageal Reflux Disease Musculoskeltal Medical History: Reports Hx Arthritis - Rheumatoid Psychiatric Medical History: Reports: Hx Depression Past Surgical History: Reports: Hx Hysterectomy - Immunizations Hx Diphtheria, Pertussis, Tetanus Vaccination: No Course - Laboratory Result Diagrams: 01/15/19 08:58 01/15/19 08:58
[2019-01-15 09:38] LABS: ALBUMIN 3.6 g/dL (3.5-5.0); ALKALINE PHOSPHATASE 68 U/L (38-126); ASPARTATE AMINO TRANSFERASE 43 U/L (14-36); BILIRUBIN,DIRECT 0.2 mg/dL (0.0-0.4); BILIRUBIN,TOTAL 0.6 mg/dL (0.2-1.3); BLOOD UREA NITROGEN 8 mg/dL (7-20); CALCIUM 8.6 mg/dL (8.4-10.2); CARBON DIOXIDE 37 mmol/L (22-30); CHLORIDE 97 mmol/L (98-107); GLUCOSE 103 mg/dL (75-110); POTASSIUM 3.5 mmol/L (3.6-5.0); TOTAL PROTEIN 6.6 g/dL (6.3-8.2)
[2019-01-15 09:40] LABS: ANION GAP 3 (5-19)
[2019-01-15] MEDS ORDERED: NORMAL SALINE 1000 ML 1,000 ML IV ONE (10:20)
--- NOTE | 2019-01-15 10:37 | ER Document Report ---
ED General - General Chief Complaint: Abdominal Pain Stated Complaint: ABDOMINAL PAIN Time Seen by Provider: 01/15/19 09:20 Mode of Arrival: Medic TRAVEL OUTSIDE OF THE [place] IN LAST 30 DAYS: No - HPI Notes: Ms. Soria is a 73-year-old female with oxygen dependent COPD and degenerative arthritis who lives at home with her elderly and is seen today for chronic persistent constipation with no bowel movement in approximately 1 week and several episodes of falls. She was actually seen here within the last week by one the mid-level providers for the same complaints. Patient denies fever or chills. She says she is having some mild dysuria. No nausea or vomiting. Poor oral intake. - Related Data Allergies/Adverse Reactions: No Known Allergies Allergy (Verified 01/06/19 13:09) Past Medical History - General Information source: Patient, Parent - Social History Smoking Status: Former Smoker Family History: Hypertension Patient has suicidal ideation: No Patient has homicidal ideation: No - Past Medical History Cardiac Medical History: Reports: Hx Hypercholesterolemia Pulmonary Medical History: Reports: Hx Bronchitis, Hx COPD, Hx Pneumonia - 10 yrs ago last time Neurological Medical History: Denies: Hx Cerebrovascular Accident, Hx Seizures Endocrine Medical History: Reports: Hx Diabetes Mellitus Type 2 Renal/ Medical History: Denies: Hx Peritoneal Dialysis GI Medical History: Reports: Hx Gastroesophageal Reflux Disease Musculoskeletal Medical History: Reports Hx Arthritis - Rheumatoid Psychiatric Medical History: Reports: Hx Depression Past Surgical History: Reports: Hx Hysterectomy - Immunizations Hx Diphtheria, Pertussis, Tetanus Vaccination: No Review of Systems - Review of Systems Notes: Constitutional: Negative for fever. HENT: Negative for sore throat. Eyes: Negative for visual changes. Cardiovascular: Negative for chest pain. Respiratory: Chronic shortness of breath. Gastrointestinal: Negative for abdominal pain, vomiting or diarrhea. Genitourinary: Mild dysuria. Musculoskeletal: Chronic back pain. Skin: Negative for rash. Neurological: Negative for headaches, weakness or numbness. 10 point ROS negative except as marked above and in HPI. Physical Exam - Vital signs Vitals: Resp Pulse Ox 19 92 01/15/19 08:55 01/15/19 08:55 - Notes Notes: GENERAL: Frail elderly female who appears very chronically ill not currently in acute distress. Patient is on 2 L of nasal O2 with O2 saturation of 98%. SKIN: Skin is pale with widespread ecchymoses of all 4 extremities of varying ages.. HEAD: Normocephalic atraumatic. EYES: PERRLA. Conjunctivae and sclerae clear. EARS: CANALS AND TMS CLEAR. NOSE: CLEAR. MOUTH: Moist mucosa. Good dentition. No stridor or edema. No drooling. NECK: Supple. No masses or thyromegaly. No adenopathy. Carotids 2+ without bruits. No JVD. BACK: Moderate dorsal kyphosis. Symmetrical without tenderness. CHEST: Respirations unlabored. Breath sounds clear and symmetrical. HEART: Regular rhythm. No murmur gallop or rub. ABDOMEN: Mild tenderness left lower quadrant. Soft without masses, organomegaly or rebound. Bowel sounds normally active. No bruits. GENITALIA: Deferred. EXTREMITIES: No edema. No calf tenderness. Cap refill less than 1.5 seconds. Dorsalis pedis and posterior tibial pulses 3+ and symmetrical. NEUROLOGICAL: GCS 15. Alert and oriented x3. Gait not tested. Fluent speech. Cranial nerves II through XII intact. Sensorimotor and cerebellar normal. Normal tone. Course - Re-evaluation Re-evalutation: 01/15/19 10:56 Rather debilitated elderly female. Primary issue today appears to be fecal impaction. Imaging is consistent. No fever here. We are going to check a cath urine specimen and we will give this patient enemas and reevaluate. 01/15/19 13:38 Patient was treated with a soapsuds enema. She had good results and felt much better. She will be returning home at this time. - Vital Signs Vital signs: Temp Pulse Resp BP Pulse Ox 99 F 118 H 23 H 114/46 L 96 01/15/19 09:34 01/15/19 09:34 01/15/19 13:00 01/15/19 12:00 01/15/19 12:01 - Laboratory Result Diagrams: 01/15/19 08:58 01/15/19 08:58 Laboratory results interpreted by me: 01/15/19 01/15/19 01/15/19 08:58 08:58 11:32 WBC 10.6 H Hgb 10.2 L Hct 31.4 L RDW 16.7 H Potassium 3.5 L Chloride 97 L Carbon Dioxide 37 H Anion Gap 3 L AST 43 H Lipase 17.3 L Urine Ketones TRACE H Urine Blood SMALL H - Diagnostic Test Radiology reviewed: Reports reviewed Discharge - Discharge Clinical Impression: Fecal impaction Condition: Stable Disposition: HOME, SELF-CARE Instructions: Fecal Impaction ([facility]) Additional Instructions: Increase intake of fresh vegetables raw fruits and fluids. Return here as needed for new or worsening symptoms. Return to your primary care doctor within the coming week for reevaluation. Take prescribed medication as directed. Prescriptions: Polyethylene Glycol 3350 [Miralax] 1 cap PO DAILY #527 powder
[2019-01-15] MEDS ORDERED: MINERAL OIL 30 ML UDCUP PR ONE (10:39)
--- NOTE | 2019-01-15 10:42 | RADIOLOGY REPORT (SQ) ---
EXAM DESCRIPTION: ACUTE ABDOMEN SERIES COMPLETED DATE/TIME: 01/15/2019 10:32 am REASON FOR STUDY: Fall left flank pain and abdominal pain and back p COMPARISON: None. NUMBER OF VIEWS: Three views. TECHNIQUE: Frontal chest, supine abdomen and upright/decubitus abdomen radiographic images acquired. LIMITATIONS: None. FINDINGS: CHEST: Lungs clear of infiltrates. FREE AIR: None. No abnormal gas collections. BOWEL GAS PATTERN: Nonobstructive pattern. No dilated loops or air fluid levels. CALCIFICATIONS: No suspicious calcifications. HARDWARE: None in the abdomen. SOFT TISSUES: No gross mass or suggestion of organomegaly. BONES: No acute fracture. No worrisome bone lesions. OTHER: No other significant finding. IMPRESSION: NO RADIOGRAPHIC EVIDENCE FOR ACUTE ABDOMINAL DISEASE. TECHNICAL DOCUMENTATION: JOB ID: [id number] [employer]- All Rights Reserved Reading location - IP/workstation name: [email or web address]
[2019-01-15 11:45] LABS: APPEARANCE,URINE CLEAR; BILIRUBIN,URINE NEGATIVE (NEGATIVE); COLOR,URINE YELLOW; GLUCOSE, URINE NEGATIVE (NEGATIVE); KETONES,URINE TRACE mg/dL (NEGATIVE); LEUKOCYTE ESTERASE,URINE NEGATIVE (NEGATIVE); NITRITE,URINE NEGATIVE (NEGATIVE); PROTEIN,URINE NEGATIVE (NEGATIVE); URINE SPECIFIC GRAVITY 1.009; UROBILINOGEN,URINE NEGATIVE mg/dL (<2.0)
[2019-01-15 13:27] VITALS: BP 114/46
--- NOTE | 2019-01-16 12:05 | EKG REPORT ---
SEVERITY:- ABNORMAL ECG - SINUS TACHYCARDIA CONSIDER RIGHT VENTRICULAR HYPERTROPHY NONSPECIFIC REPOL ABNORMALITY, DIFFUSE LEADS VS LVH VS ISCHEMIA BORDERLINE PROLONGED QT INTERVAL : Confirmed by: Jordan Wellington 16-Jan-2019 12:04:48
== END 2019-01-15 13:59 | disposition home or self-care (01) ==
LOC: ER 08:49
DX: K56.41 Fecal impaction (principal); R10.9 Unspecified abdominal pain; R30.0 Dysuria; J44.9 Chronic obstructive pulmonary disease, unspecified; Z87.891 Personal history of nicotine dependence; E11.9 Type 2 diabetes mellitus without complications
CPT/HCPCS: 93005; 99284; 96360; 96361; 36415; 83690; 85025; 80053; 81001; 74022; 93010; A9270; J7030; J3490